=== PATIENT | male | born 1935 | race Caucasian/White ===

== ENCOUNTER → 2020-02-26 07:57 | Outpatient (BNVA) | payer MEDICARE, OTHER, SELFPAY | PROVIDERS: Family Provider Family Medicine; PCP Family Medicine; Visit Provider Specialist | DX: G30.9 Alzheimer's disease, unspecified (principal); F02.80 Dementia in other diseases classified elsewhere, unspecified severity, without behavioral disturbance, psychotic disturbance, mood disturbance, and anxiety | CPT/HCPCS: 99213 ==

== ENCOUNTER 2020-10-14 11:31 | Inpatient (IN) | payer MEDICARE, OTHER, SELFPAY ==
[2020-10-14] VITALS (11 sets, daily range): BP systolic 103–157; BP diastolic 70–102; PULSE 74–103; RESP 12–18; TEMP 36.4–37.7; O2SAT 93–100; BMI 22.9
--- NOTE | 2020-10-14 13:06 | W.ED.ABDPA2 ---
HPI - Abdominal Pain General: Chief Complaint: Abdominal Pain Stated Complaint: Hernia Complications Time Seen by Provider: 10/14/20 12:24 Source: patient and family Mode of arrival: wheelchair Limitations: no limitations History of Present Illness: HPI narrative: Mr. Vasquez is a pleasant 85-year-old male who comes in complaining of right inguinal pain. Patient has a known right inguinal hernia that is been present for quite some time. Patient's hernia came out last night and he is unable to reduce it. He presented to Dr. Perla's office today because of the pain he had been having he was referred here to the ER for evaluation. Is been no nausea or vomiting. His is uncertain when his last bowel movement was. Patient denies pain or complaint anywhere else other than his right hernia. Patient's states that hernias been present for quite some time but is always been reducible it is never called pain or problem until today. They have not tried anything at home for this to make it better or worse. Associated Symptoms: Denies chills, coffee ground emesis, constipation, GI cramping, diarrhea, dysuria, fever(s), heartburn, hematochezia, hematuria, hematemesis, melena, nausea, syncope and vomiting Review of Systems Const: Denies: fever(s), chills, body aches, fatigue, malaise or diaphoresis Eyes: Denies: change in vision, blurry vision, photophobia, eye discomfort, eye discharge, eye redness or yellow eyes ENMT: Denies: throat pain, odynophagia, hoarseness, swelling of lips/tongue, ear or mastoid pain, ear discharge, change in hearing or nasal discharge Card: Denies: chest pain, palpitations, irregular heart rhythm, edema, lightheadedness, syncope, pre-syncope, dyspnea on exertion or orthopnea Resp: Denies: dyspnea, productive cough, non-productive cough, wheezing, hemoptysis or chest congestion GI: Reports: abdominal pain (Right inguinal pain); Denies: nausea, vomiting, hematemesis, coffee ground emesis, heartburn, diarrhea, constipation, GI cramping, hematochezia or melena : Denies: flank pain, dysuria, urinary frequency, urinary urgency or hematuria Musc: Denies: neck pain, back pain, extremity pain, extremity swelling, joint pain, joint swelling, joint redness, joint warmth or joint stiffness Skin/Breast: Denies: rash, pruritus, erythema, skin pain or skin tenderness Neuro: Denies: headache(s), numbness in extremities, weakness in extremities, sensory changes, lack of coordination, difficulty walking, dizziness, vertigo, confusion, Slurred speech present or seizure-like activity Luis Enrique/Lymph: Denies: easy bruising, easy bleeding, petechiae, purpura or enlarged lymph nodes All/Imm: Denies: urticaria, throat swelling, tongue swelling, facial swelling or acute wheezing PFSH ED PFSH: Medical History (Updated 10/14/20 @ 14:05 by Frankie Newberry MD) Arthritis Cognitive decline Depression Hypertension Hypothyroidism Primary degenerative dementia of the Alzheimer type, senile onset Family History Other Dementia Social History Smoking and tobacco status: never smoked History of recent travel: No Physical Exam Const: COMMON NORMALS: no acute distress, patient oriented x3, no limitations and alert GENERAL APPEARANCE: cooperative HENMT: COMMON NORMALS: normocephalic, atraumatic, external ears normal, EAC's normal and Normal external nose present HEAD & SCALP: normal to inspection, normocephalic and atraumatic FACE & SINUS: normal facial exam and face symmetric NOSE: Normal external nose present and Normal nares present EXTERNAL EAR: Yes external ears normal EXTERNAL AUDITORY CANAL: EAC's normal MOUTH: Normal oral and palatal mucosa present, lip normal and tongue normal Eye: COMMON NORMALS: Equal, round and reactive pupils present and conjunctivae normal GENERAL EYE: appearance normal, both eyes and all related structures ALIGNMENT: Yes alignment normal PERIORBITAL: periorbital findings normal EYELID: eyelids normal CONJUNCTIVA: Yes conjunctivae normal SCLERA: sclerae normal PUPIL: Yes Equal, round and reactive pupils present Neck/C-Spine: COMMON NORMALS: full ROM, no lymphadenopathy, supple, no meningeal signs and no JVD GENERAL: Yes normal visual inspection and Yes trachea midline Chest: COMMONS NORMALS: normal inspection of the chest and normal palpation of entire chest wall Resp: COMMON NORMALS: normal respiratory effort, No retractions, No use of accessory muscles and clear to auscultation bilaterally EFFORT & INSPECTION: Yes able to speak in complete sentences and Yes symmetric chest movement AUSCULTATION: clear to auscultation bilaterally, no crackles, no rales, no rhonchi and no wheezes Cardio: COMMON NORMALS: no JVD, regular rate, regular rhythm, S1 normal heart sound present and S2 normal heart sound present RATE: regular rate RHYTHM: regular rhythm HEART SOUNDS: S1 normal heart sound present, S2 normal heart sound present, no click, no gallops, no murmurs and no rubs GI: COMMON NORMALS: Soft to palpation and No hepatosplenomegaly present PALPATION: Yes Soft to palpation, Yes Tenderness to palpation present (GI) (Tender to palpation over right inguinal hernia that is large and firm.), No Guarding due to palpation present (GI), No Rigid due to palpation, Yes No hepatosplenomegaly present, No Hernia present, No Palpable mass present and No Pulsatile mass present : COMMON NORMALS: Yes no CVA tenderness BLADDER/KIDNEY EXAM: Yes no CVA tenderness Back/Pelvis: COMMON NORMALS: no CVA tenderness, thoracic and lumbar spine normal to inspection, no thoracic nor lumbar tenderness and thoraco-lumbar ROM normal Extremity: COMMON NORMALS: normal to inspection, full ROM, capillary refill normal, no joint enlargement, no clubbing, cyanosis or edema and no calf tenderness Neuro: COMMON NORMALS: patient oriented x3, CN's II-XII intact bilaterally, moves all extremities, no focal motor deficits and no sensory deficits noted SENSORIUM/ORIENTATION: Yes alert MENINGEAL SIGNS: Yes no meningeal signs SPEECH: speech normal Psych: COMMON NORMALS: mental status grossly normal, Normal thought process present, cooperative, normal affect, speech normal and activity/motor behavior normal SPEECH: Yes normal speech THOUGHT PROCESS: Normal thought process present Skin: COMMON NORMALS: no rashes or lesions noted, turgor normal, no jaundice, no petechiae and no mottling GENERAL SKIN EXAM: no rashes or lesions noted and turgor normal Course Vital Signs: Vital signs: Vital Signs Temperature 99.8 F H 10/14/20 11:58 Pulse Rate 103 H 10/14/20 13:25 Respiratory Rate 15 10/14/20 13:25 Blood Pressure 142/80 10/14/20 11:58 Pulse Oximetry 97 10/14/20 13:25 MDM - Abdominal Pain MDM Narrative: Medical decision making narrative: 1347 -patient still has pain in very firm hernia. Case was reviewed with Dr. Newberry and he will come see the patient in the emergency department. Lab Data: Labs: Lab Results 10/14/20 10/14/20 10/14/20 Range/Units 13:13 13:13 13:13 WBC 18.2 H (4.0-10.0) 10^3/ uL RBC 4.95 (4.1-5.3) 10^6/u L Hgb 14.6 (11.7-16.6) g/dL Hct 44.1 (42.0-52.0) % MCV 89.1 (80-94) fL MCH 29.5 (28.0-34.0) pg MCHC 33.1 (30.0-36.0) g/dL RDW 14.1 (12.1-15.1) % Plt Count 162 (130-400) 10^3/c mm MPV 10.5 H (7.4-10.4) fL Neut % (Auto) 86.6 % Lymph % (Auto) 2.5 % Cole % (Auto) 10.0 % Eos % (Auto) 0.0 % Baso % (Auto) 0.3 % Neut # (Auto) 15.71 H (1.8-7.7) 10^3/u L Lymph # (Auto) 0.5 L (0.8-4.8) 10^3/u L Cole # (Auto) 1.8 H (0.2-0.9) 10^3/u L Eos # (Auto) 0.0 (0.0-0.8) 10^3/u L Baso # (Auto) 0.1 (0.0-0.1) 10^3/u L Nucleated RBC % (a uto) 0 % Nucleated RBCs # 0.0 /100WBC PT (12.1-14.9) SECO NDS INR (0.8-1.2) APTT (23.9-36.7) SECO NDS Sodium 135 L (136-145) mmol/L Potassium 4.3 (3.5-5.1) mmol/L Chloride 96 L (98-107) mmol/L Carbon Dioxide 25 (22-29) mmol/L Anion Gap 18.3 (5-19) BUN 22 (8-23) mg/dL Creatinine 1.0 (0.7-1.2) mg/dL GFR Calculation Not Reportable Glucose 164 H (65-115) mg/dL Calculated Osmolal ity 287 (285-295) mOsm/k g Lactic Acid 1.9 (0.5-2.2) mmol/L Calcium 9.5 (8.5-10.5) mg/dL Total Bilirubin 1.1 (0.15-1.2) mg/dL AST 22 (0-40) U/L ALT 20 (0-41) U/L Alkaline Phosphata se 75 (40-130) IU/L Total Protein 7.0 (6.6-8.7) g/dL Albumin 4.5 (3.5-5.2) g/dL Globulin 2.5 (1.3-4.6) g/dL 10/14/20 Range/Units 13:13 WBC (4.0-10.0) 10^3/ uL RBC (4.1-5.3) 10^6/u L Hgb (11.7-16.6) g/dL Hct (42.0-52.0) % MCV (80-94) fL MCH (28.0-34.0) pg MCHC (30.0-36.0) g/dL RDW (12.1-15.1) % Plt Count (130-400) 10^3/c mm MPV (7.4-10.4) fL Neut % (Auto) % Lymph % (Auto) % Cole % (Auto) % Eos % (Auto) % Baso % (Auto) % Neut # (Auto) (1.8-7.7) 10^3/u L Lymph # (Auto) (0.8-4.8) 10^3/u L Cole # (Auto) (0.2-0.9) 10^3/u L Eos # (Auto) (0.0-0.8) 10^3/u L Baso # (Auto) (0.0-0.1) 10^3/u L Nucleated RBC % (a uto) % Nucleated RBCs # /100WBC PT 13.60 (12.1-14.9) SECO NDS INR 1.01 (0.8-1.2) APTT 29.7 (23.9-36.7) SECO NDS Sodium (136-145) mmol/L Potassium (3.5-5.1) mmol/L Chloride (98-107) mmol/L Carbon Dioxide (22-29) mmol/L Anion Gap (5-19) BUN (8-23) mg/dL Creatinine (0.7-1.2) mg/dL GFR Calculation Glucose (65-115) mg/dL Calculated Osmolal ity (285-295) mOsm/k g Lactic Acid (0.5-2.2) mmol/L Calcium (8.5-10.5) mg/dL Total Bilirubin (0.15-1.2) mg/dL AST (0-40) U/L ALT (0-41) U/L Alkaline Phosphata se (40-130) IU/L Total Protein (6.6-8.7) g/dL Albumin (3.5-5.2) g/dL Globulin (1.3-4.6) g/dL Discharge Plan Discharge Patient Disposition: Placed in Observation Clinical Impression: Incarcerated inguinal hernia, unilateral Coding Level of Care Code ED Slip Cover Seamstress for Chg Fwd Exam Comprehensive
[2020-10-14 13:23] LABS: Basophils # 0.1 10^3/uL (0.0-0.1); Basophils % 0.3 %; Hematocrit 44.1 % (42.0-52.0); Hemoglobin 14.6 g/dL (11.7-16.6); Lymphocytes # 0.5 10^3/uL (0.8-4.8); Lymphocytes % 2.5 %; Mean Corpuscular HGB Conc 33.1 g/dL (30.0-36.0); Mean Corpuscular Hemoglobin 29.5 pg (28.0-34.0); Mean Corpuscular Volume 89.1 fL (80-94); Mean Platelet Volume 10.5 fL (7.4-10.4); Monocytes # 1.8 10^3/uL (0.2-0.9); Neutrophils # 15.71 10^3/uL (1.8-7.7); Neutrophils % 86.6 %; Nucleated Red Blood Cells % 0 %; Platelet Count 162 10^3/cmm (130-400); Red Blood Count 4.95 10^6/uL (4.1-5.3); Red Cell Distribution Width 14.1 % (12.1-15.1); White Blood Count 18.2 10^3/uL (4.0-10.0)
[2020-10-14] MEDS: sodium chloride 0.9% 1,000 ML 100 ML IV (13:23)
[2020-10-14] MEDS: ondansetron 2 mg/ML SDV 2 mL 4 MG IVP (13:24)
[2020-10-14] MEDS: morphine 4 mg/mL SDV 1 mL IVP (13:24)
[2020-10-14 13:33] LABS: INR 1.01 (0.8-1.2); Partial Thromboplastin Time 29.7 SECONDS (23.9-36.7)
[2020-10-14 13:41] LABS: Lactic Sepsis W/Reflex 1.9 mmol/L (0.5-2.2)
[2020-10-14 13:42] LABS: Alanine Aminotransferase 20 U/L (0-41); Albumin Level 4.5 g/dL (3.5-5.2); Alkaline Phosphatase 75 IU/L (40-130); Anion Gap 18.3 (5-19); Aspartate Amino Transferase 22 U/L (0-40); Blood Urea Nitrogen 22 mg/dL (8-23); Calcium 9.5 mg/dL (8.5-10.5); Carbon Dioxide 25 mmol/L (22-29); Chloride 96 mmol/L (98-107); Globulin 2.5 g/dL (1.3-4.6); Glucose 164 mg/dL (65-115); Osmolality Calculated 287 mOsm/kg (285-295); Potassium 4.3 mmol/L (3.5-5.1); Sodium 135 mmol/L (136-145); Total Bilirubin 1.1 mg/dL (0.15-1.2)
--- NOTE | 2020-10-14 14:00 | P.HP_ITS ---
Providers/Chief Complaint Admitting Physician: General Surgery Frankie Newberry MD Primary Care Provider: Edinson Emery DO Chief Complaint: Hernia Complications/Sent from History of Present Illness Angelo Fishman is a 85 year old male with an apparent known history of a right inguinal hernia for at least a year. It sounds like the hernia got larger and more painful for the patient yesterday. He has dementia and so a lot of this history was obtained from his . It sounds like he developed some nausea but no vomiting. He saw Dr. Emery and was sent to the emergency room subsequently for the incarcerated right inguinal hernia. Review of Systems General: Reports: ROS unobtainable due to medical condition (Patient has significant dementia) Medications/Allergies Home Medications Medication Instructions Recorded Confirmed Last Taken Type levothyroxine 75 mcg capsule 75 mcg PO DAILY@02/26/20 10/14/20 10/14/20 History losartan 50 mg-hydrochlorothiazide 1 tab PO DAILY@02/26/20 10/14/20 10/13/20 History 12.5 mg tablet memantine 10 mg tablet 10 mg PO BID@02/26/20 10/14/20 10/13/20 History Aricept 20 mg PO DAILY@10/14/20 10/14/20 10/13/20 History Allergies Allergy/AdvReac Type Severity Reaction Status Date / Time No Known Allergies Allergy Verified 10/14/20 12:07 PFSH Acute PFSH: Medical History (Updated 10/14/20 @ 14:05 by Frankie Newberry MD) Arthritis Cognitive decline Depression Hypertension Hypothyroidism Primary degenerative dementia of the Alzheimer type, senile onset Surgical History (Updated 10/14/20 @ 15:46 by Frankie Newberry MD) History of inguinal hernia repair done in [place] years ago according to the patient's Hx of cataract surgery Only on one side per the patient's Family History Other Dementia Social History Smoking and tobacco status: never smoked History of recent travel: No Vitals/I&O/Wt Last Vital Signs Temp 99.8 F H 10/14/20 11:58 Pulse 103 H 10/14/20 13:25 Resp 15 10/14/20 13:25 BP 142/80 10/14/20 11:58 Pulse Ox 97 10/14/20 13:25 Weight last 48 hrs Weight 160 lb Physical Exam Narrative: EXAM NARRATIVE: The patient was encountered in his room in the emergency department. He appears to be resting comfortably. The pupils are equal. No carotid bruits are heard. The lungs are clear anteriorly. The heart is regular but there is an occasional apparent skipped beat/prematurity. The abdomen is soft with mild scattered tenderness. He has an obvious incarcerated right inguinal hernia which extends down into the top of the right hemiscrotum. The area is very tender but there are no overlying skin changes otherwise. I cannot see a scar on either side from a possible previous repair. The extremities reveal no edema. Neurologically the patient appears to be grossly intact. Data : 10/14/20 13:13 10/14/20 13:13 A&P Assessment and plan (1) Incarcerated right inguinal hernia: The patient has an incarcerated and tender right inguinal hernia. I have discussed urgent reduction and repair with both the patient and his . Risks of surgery including bleeding, infection, hernia recurrence, anesthetic complications, etc. were all discussed. They seem to understand and agree to proceed with a repair today. Status: Acute Attestations Medical Necessity Statement*: The patient may be able to be discharged following surgery today. He will be left in outpatient status for now. 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
--- NOTE | 2020-10-14 15:25 | P.ANESASSM_ITS ---
Pre-Anesthetic Assessment Pre-Anesthetic Assessment: Height/Weight: Height 1.78 m Weight 72.575 kg Temp Pulse Resp BP Pulse Ox 97.6 F 103 H 18 157/102 98 10/14/20 15:01 10/14/20 15:01 10/14/20 15:01 10/14/20 15:01 10/14/20 15:01 Proposed Procedure: Operation Date: 10/14/20 16:00 Proposed Procedures p Inguinal Hernia Repair(Right) - Frankie Newberry MD Was Beta Ann taken within 24 hours: N/A Last intake: Intake Last Liquid Date 10/13/20 Last Liquid Time 12:00 Last Solid Date 10/13/20 Last Solid Time 12:00 Social: Social History: No alcohol and No tobacco Exam: Pre-Anes Outpt Exam: alert, clear to auscultation bilaterally and regular rate & rhythm Airway: Submandibular: WNL Cervical ROM: WNL MP: 2 Dentition: False and Partials Pulmonary: Pulmonary: None reported CV/HEM: CV/HEM: HTN : : None reported Hepatic: Hepatic: None reported GI: GI: GERD Comments: hernia Metabolic: Metabolic: None reported Musc/skel: Musc/skel: None reported Neuropsych: Neuropsych: Dementia Anesthetic Plan: ASA status: 3 Anesthesia: General Risk of > 500 ml blood loss (7ml/kg in children): No Meds/Allergies Current Medications: Current Medications Generic Name Dose Route Start Last Admin Trade Name Freq PRN Reason Stop Dose Admin Sodium Chloride 1,000 mls @ 100 m ls/hr 10/14/20 12:30 10/14/20 13:23 Sodium Chloride 0.9% IV 100 mls/hr .Q10H FORREST Administration PFSH Anesthesia PFSH: Medical History (Updated 10/14/20 @ 14:05 by Frankie Newberry MD) Arthritis Cognitive decline Depression Hypertension Hypothyroidism Primary degenerative dementia of the Alzheimer type, senile onset Family History Other Dementia Social History Smoking and tobacco status: never smoked History of recent travel: No Data Anesthesia CBC & Chem 7: 10/14/20 13:13 10/14/20 13:13 Other Labs: Laboratory Results - last 48 hr 10/14/20 10/14/20 10/14/20 13:13 13:13 13:13 WBC 18.2 H RBC 4.95 Hgb 14.6 Hct 44.1 MCV 89.1 MCH 29.5 MCHC 33.1 RDW 14.1 Plt Count 162 MPV 10.5 H Neut % (Auto) 86.6 Lymph % (Auto) 2.5 [place] % (Auto) 10.0 Eos % (Auto) 0.0 Baso % (Auto) 0.3 Neut # (Auto) 15.71 H Lymph # (Auto) 0.5 L [place] # (Auto) 1.8 H Eos # (Auto) 0.0 Baso # (Auto) 0.1 Nucleated RBC % (auto) 0 Nucleated RBCs # 0.0 PT INR APTT Sodium 135 L Potassium 4.3 Chloride 96 L Carbon Dioxide 25 Anion Gap 18.3 BUN 22 Creatinine 1.0 GFR Calculation Not Reportable Glucose 164 H Calculated Osmolality 287 Lactic Acid 1.9 Calcium 9.5 Total Bilirubin 1.1 AST 22 ALT 20 Alkaline Phosphatase 75 Total Protein 7.0 Albumin 4.5 Globulin 2.5 10/14/20 13:13 WBC RBC Hgb Hct MCV MCH MCHC RDW Plt Count MPV Neut % (Auto) Lymph % (Auto) [place] % (Auto) Eos % (Auto) Baso % (Auto) Neut # (Auto) Lymph # (Auto) [place] # (Auto) Eos # (Auto) Baso # (Auto) Nucleated RBC % (auto) Nucleated RBCs # PT 13.60 INR 1.01 APTT 29.7 Sodium Potassium Chloride Carbon Dioxide Anion Gap BUN Creatinine GFR Calculation Glucose Calculated Osmolality Lactic Acid Calcium Total Bilirubin AST ALT Alkaline Phosphatase Total Protein Albumin Globulin Cardiac Studies: No Data to Display
--- NOTE | 2020-10-14 20:05 | SUR.OPER ---
sandra noticed blood in urine (catheter bag). Dr. smiley notified via cell phone
--- NOTE | 2020-10-14 21:03 | PM.OP ---
Operative Report Date of procedure: October 14, 2020 Pre-op Diagnosis: Intraoperative hematuria Post-op diagnosis: same Post-op Diagnosis: No evidence of bladder or ureteral injury Procedure Done: 1. Cystoscopy Pathology: none sent Surgeon: See Business Transformation Manager: Coni Anesthesia: General Estimated blood loss: None during the urologic procedure Urine output: Not measured Complications: None Findings: 1. No obvious extravasation of fluid into the abdominal cavity with filling of the bladder with indigo carmine stained normal saline via Jeffrey catheter. 2. Friable prostate. 3. Heavily trabeculated bladder 4. Bilateral normal ureteral efflux 5. No evidence of genitally urinary injury Condition: stable Brief History: The patient is an 85-year-old white male with an incarcerated inguinal hernia who was found to have ischemic bowel in the hernia at time of hernia repair by Dr. Newberry. He performed a partial colectomy and had close the wound but it was noted that there was some hematuria in the Jeffrey catheter. Concern obviously was potential for bladder or ureteral injury and I was consulted for evaluation. _ Procedure: The patient was asleep on the table with an open abdominal wound upon my entry into the operating suite. The wound was inspected and there was no obvious gross injury to the bladder. Utilizing the Jeffrey catheter placed preoperatively about 180 cc of indigo carmine stained normal saline was instilled into the bladder. The bladder was confirmed to be full. There was no evidence of leakage with careful inspection of the visible bladder and also of the fluid drained from the peritoneal cavity. There appeared to be no through and through trauma of the bladder wall therefore. A flexible cystoscope was then utilized. His Jeffrey catheter was removed and he was reprepped underneath the drapes for the abdominal surgery. A well-lubricated flexible cystoscope was advanced into the bladder under direct vision. There was a little bit of blood in the bladder and this was irrigated out. The bladder wall was carefully inspected and there was no evidence of any perforation or injury. The bladder held the fluid used to fill the bladder. Prior to the cystoscopy indigo carmine was administered intravenously with small amount of Lasix administered as well. Both ureteral orifices were carefully inspected and they effluxed normally with indigo stained urine. After confirmation of no evidence of ureteral or bladder injury the procedure was completed and the bladder was drained with an 18 [place] Jeffrey catheter placed to dependent drainage. He tolerated the procedure well without complications and was turned back over to Dr. Newberry for completion of his portion. _
--- NOTE | 2020-10-14 21:09 | PM.OP ---
Operative Report Date of procedure: October 14, 2020 Pre-op Diagnosis: Incarcerated right inguinal hernia. Post-op Diagnosis: Incarcerated right indirect inguinal hernia with cecal necrosis. Procedure Done: 1. Exploratory laparotomy with cecectomy. 2. Reduction and repair of incarcerated right inguinal hernia. 3. Flexible cystoscopy by Dr. Cui. Specimens removed/disposition: 1. Terminal ileum/cecum. 2. Right inguinal hernia sac. Surgeon: Frankie Newberry Surgeon: Jose Cui Anesthesia: General Estimated blood loss (mL): 75 Complications: None. Condition: stable Disposition: ICU Procedure: The patient was brought to the operating room and was placed in a supine position on the operating room table. General endotracheal anesthesia was induced. The lower abdomen and genitalia were prepped and draped in a sterile fashion. A transverse incision was carried out on the right side above the level of the pubic tubercle. Cautery was used to divide the subcutaneous tissue down to the external oblique aponeurosis. The the patient's right inguinal hernia was still very firm and was unable to be reduced despite the induction of anesthesia. The external inguinal ring was opened by dividing the fibers of the external oblique along the surface of the inguinal canal. It was quickly discovered that the patient had a flimsy, dusky german, somewhat malodorous hernia sac coming through the internal inguinal ring with the cord structures. The sac was freed from the surrounding cord structures and in the process the contents of the hernia were reduced. The hernia sac was freed up to the internal ring and was then opened revealing a somewhat dusky and hemorrhagic appearing cecum just within the peritoneal cavity. I did not feel like I could get a very good look at the cecum through the small hernia defect and so the decision was made to perform a mini laparotomy in the lower midline. A lower midline incision was carried out with a scalpel and the subcutaneous tissue was opened using cautery. The midline fascia was opened and the peritoneal cavity was entered. It was found that the cecum was very dusky and it could be seen that the dependent portion of the cecum had obviously been incarcerated in the hernia as it was somewhat necrotic but no evidence of gross perforation was present. It was clear that the cecum was going to need to be removed. The incisions were covered and the drapes were removed. The abdomen was reprepped and draped more completely superiorly and a Jeffrey catheter was inserted. Anesthesia eventually placed a nasogastric tube, as well. The incision was carried out up and slightly around the umbilicus in the midline. The cecum was then mobilized by incising the peritoneal reflections along the right gutter all the way up and slightly around the hepatic flexure. The colon once again became healthy at the proximal ascending region. The ileum itself appeared to be healthy with the exception of some edema very distally. The terminal ileum was divided using a ANA LILIA 55 stapler. The mid ascending colon was divided using the same. The intervening mesentery was divided using the Voyant energy device. Sizable vessels were also ligated with ties of 0 Vicryl. The specimen was excised. The peritoneal cavity was then extensively irrigated with saline. Eventually the nasogastric tube could be felt within the stomach and was adjusted by anesthesia. The terminal ileum was then brought together with the ascending colon with some stay sutures of 3-0 Vicryl in preparation for anastomosis. An opening was made near the end of either limb of bowel with cautery and then an arm of a ANA LILIA 55 stapler was passed down either limb and was fired, creating a common opening between the 2 limbs of bowel in a standard functional end-to-end anastomotic fashion. The staple lines were transposed and the common opening on the end was closed with another ANA LILIA 55 stapler. The anastomosis was palpably patent and all the bowel remained viable throughout the remainder of the procedure. Some additional stay sutures of 3-0 Vicryl were placed at the proximal end of the staple line to take tension off of the anastomosis. The mesenteric window was also closed using running suture of 3-0 Vicryl. The bowel was returned to the abdomen and extensive irrigation was once again carried out. A final look around the abdomen revealed no other obvious issues. The midline fascia was closed using a running looped suture of PDS suture. Attention was once again directed to the transverse right inguinal incision. The hernia sac was ligated near its neck at the internal ring with a stick tie of 3-0 Vicryl and the excess sac was excised. The wound was irrigated with saline. The hernia was then repaired using multiple sutures of 0 Prolene that were used to connect the conjoined area medially to the reflecting edge of Poupart's ligament laterally both superior and inferior to the internal inguinal ring in a typical Bassini fashion. I have avoided any use of mesh given the incarceration with the necrotic hernia sac that had been present. Extensive irrigation was once again carried out and the external oblique aponeurosis was brought over the remaining cord structures using a running suture of 3-0 Vicryl. The subcutaneous tissue was approximated with a simple suture of 3-0 Vicryl. At this point anesthesia reported a small tinge of blood in the Jeffrey catheter bag. Dr. Cui from urology was contacted and while he was coming into the hospital I opened up the lower fascial incision in the midline since the small laparotomy incision had been made before the patient's Jeffrey catheter was inserted. The peritoneal and preperitoneal spaces were examined and no obvious injury was seen on the bladder. Dr. Cui arrived and helped inspect the bladder through the lower portion of the midline incision after the bladder had been filled with saline containing methylene blue, and no obvious injury was seen either in the preperitoneal space or coming from the peritoneal cavity. Dr. Cui then performed flexible sigmoidoscopy after the patient had been administered some indigo carmine intravenously, and no obvious bladder or ureteral injury was identified. See Dr. Cui's separate dictation for details of his portion of the procedure. The lower aspect of the midline incision was once again closed at the fascial level with a running suture of #1 PDS. This was tied to the looped PDS suture that was coming down from above that had been partially loosened up to reinspect the lower abdomen and preperitoneal space. The subcutaneous tissue was once again irrigated and then the skin in the midline was closed using skin felicity. A final round of irrigation was also carried out in the right inguinal incision before the skin was approximated using skin felicity. Sterile dressings were placed over the incisions and the patient was eventually taken directly to the intensive care unit postoperatively in stable condition postoperatively.
--- NOTE | 2020-10-14 21:11 | PM.CONSULT ---
Providers/Reason For Consult Consulting Physican/Specialty*: Urology/See Reason for Consult*: Intraoperative hematuria Attending Physician: Frankie Newberry MD Primary Care Provider: Edinson Emery DO History of Present Illness History of Present Illness Angelo Fishman is a 85 year old male who was found to have an incarcerated right inguinal hernia and ultimately ischemic bowel was discovered. Partial colectomy was performed and at the completion of the procedure hematuria was noted in the urine. I was consulted for evaluation. Review of Systems General: Reports: Other (Under anesthesia) Meds/Allergies Home Medications and Allergies Home Medications Medication Instructions Recorded Confirmed Last Taken Type levothyroxine 75 mcg capsule 75 mcg PO DAILY@02/26/20 10/14/20 10/14/20 History losartan 50 mg-hydrochlorothiazide 1 tab PO DAILY@02/26/20 10/14/20 10/13/20 History 12.5 mg tablet memantine 10 mg tablet 10 mg PO BID@,02/26/20 10/14/20 10/13/20 History Aricept 20 mg PO DAILY@10/14/20 10/14/20 10/13/20 History Allergies Allergy/AdvReac Type Severity Reaction Status Date / Time No Known Allergies Allergy Verified 10/14/20 12:07 Current Medications Current Medications Generic Name Dose Route Start Last Admin Trade Name Freq PRN Reason Stop Dose Admin Sodium Chloride 1,000 mls @ 100 mls/hr 10/14/20 12:30 10/14/20 13:23 Sodium Chloride 0.9% IV 100 mls/hr .Q10H FORREST Administration PFSH Acute PFSH: Medical History (Updated 10/14/20 @ 21:13 by Jose Cui MD) Arthritis Cognitive decline Depression Hypertension Hypothyroidism Primary degenerative dementia of the Alzheimer type, senile onset Surgical History (Updated 10/14/20 @ 15:46 by Frankie Newberry MD) History of inguinal hernia repair done in [place] years ago according to the patient's Hx of cataract surgery Only on one side per the patient's Family History Other Dementia Social History Smoking and tobacco status: never smoked History of recent travel: No Vitals/I&O/Wt Last Vital Signs Temp 97.6 F 10/14/20 15:01 Pulse 103 H 10/14/20 15:01 Resp 18 10/14/20 15:01 BP 157/102 10/14/20 15:01 Pulse Ox 98 10/14/20 15:01 10/14/20 10/14/20 10/14/20 06:59 14:59 22:59 Intake Total 50 / 50 Balance 50 / 50 Weight last 48 hrs Weight 160 lb Physical Exam Narrative: EXAM NARRATIVE: Intraoperative and anesthetized. : PENIS: normal penis and no swelling MEATUS: meatus normal Urinary Catheter Management^: Jeffrey Latex: Cath Placed During This Visit: yes Urinary Catheter Date of Insertion: 10/14/20 Urinary Catheter Time of Insertion: 19:10 A&P Assessment and plan (1) Gross hematuria: 1. Bladder was filled with indigo carmine stained normal saline with no evidence of extravasation into the peritoneal cavity with direct visualization. 2. Flexible cystoscopy was performed with a demonstrated no evidence of intravesicle pathology except for friable prostate. Ureters were confirmed to be effluxing urine stained with indigo carmine given intravenously. 3. No gross pathology identified of any concern related to the urinary tract. 4. No further work-up necessary. Would maintain the catheter as per normal protocol. 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
--- NOTE | 2020-10-14 21:38 | P.PCN_ITS ---
PACU note PACU note: VSS, good respiratory effort, report to PURCHASING MANAGER/SALES Post-Anesthesia Exam: somnolent, arousable Disposition: admitted
--- NOTE | 2020-10-14 21:38 | PM.PACU ---
PACU note PACU note: VSS, good respiratory effort, report to DIESEL BUS MECHANIC Post-Anesthesia Exam: somnolent, arousable Disposition: admitted
--- NOTE | 2020-10-14 21:39 | ANE.PACU2 ---
Inpatient post-anesthesia follow up: Airway intact: Yes Vital signs: Temperature 98.3 F Pulse Rate [Right Radial] 96 Pulse Rate 83 Respiratory Rate 17 Blood Pressure [Le ft Arm] 142/80 Blood Pressure 137/86 Pulse Oximetry 100 Oxygen Delivery Me thod Simple Mask Oxygen Flow Rate 6 Fraction of Inspir ed Oxygen Hydration adequate: Yes Nausea and vomiting: No Pain level: 3 Mental status: Baseline
[2020-10-14] MEDS: piperacillin-tazobactam 3.375 GM in sodium chloride 0.9% (plus) 50 ML IV (22:35)
[2020-10-14] MEDS: D5-NS 0.45% + KCL 20 mEq 20 MEQ/1,000 ML BAG 100 MEQ IV (22:35)
[2020-10-14] MEDS: famotidine 20 mg/2 mL INJ IVP (22:36)
[2020-10-14] MEDS: OLANZapine 10 mg VIAL IM (23:16)
[2020-10-14 23:56] LABS: Blood Urea Nitrogen 19 mg/dL (8-23); Calcium 8.1 mg/dL (8.5-10.5); Carbon Dioxide 23 mmol/L (22-29); Chloride 102 mmol/L (98-107); Glucose 150 mg/dL (65-115); Osmolality Calculated 287 mOsm/kg (285-295); Sodium 136 mmol/L (136-145)
[2020-10-15] VITALS (41 sets, daily range): BP systolic 69–141; BP diastolic 45–107; PULSE 67–136; RESP 14–43; TEMP 37–37.6; O2SAT 80–98
[2020-10-15 00:04] LABS: Anion Gap 15.3 (5-19); Potassium 4.3 mmol/L (3.5-5.1)
--- NOTE | 2020-10-15 00:39 | PM.CONSULT ---
Providers/Reason For Consult Consulting Physican/Specialty*: Hospitalist service Reason for Consult*: Postoperative acute delirium and multiple comorbid condition management Attending Physician: Frankie Newberry MD Primary Care Provider: Edinson Emery DO History of Present Illness History of Present Illness Angelo Fishman is a 85 year old male who has history of underlying dementia, long history of right inguinal hernia presented today after episodes of emesis, his PCP recommended him to go to the ER for further evaluation, got diagnosed with incarcerated inguinal hernia, Dr. Newberry performed the surgery, during surgery he was found to have necrotic cecum , status post removal of cecum with end-to-end anastomosis, hospitalist service has been requested for assistance and ICU management after the procedure. Of note during procedure he had hematuria, Dr. Cui did flexible cystoscopy, no extravasation of dye was noticed in peritoneum, no friable mucosa or prostate acute pathology was noticed. At the time my evaluation patient seems very agitated, he did not respond to Zyprexa 10 mm IM hence decision was made to start him on Precedex, I did not recommend BiPAP because of recent surgery, I requested nurses to update me regarding vitals to see if we need to switch his medications and just stick with antipsychotics. At the bedside Zosyn is running. Patient is awake, alert but confused and is not able to give answers to my simple questions. told the nursing staff that he does get sundowning which can get really bad. His Jeffrey catheter has greenish blue-tinged dye, I do not see active hematuria. He is hemodynamically stable. Review of Systems General: Reports: ROS unobtainable due to medical condition (Postoperative delirium with underlying dementia) Const: Reports: fever(s) Meds/Allergies Home Medications and Allergies Home Medications Medication Instructions Recorded Confirmed Last Taken Type levothyroxine 75 mcg capsule 75 mcg PO DAILY@02/26/20 10/14/20 10/14/20 History losartan 50 mg-hydrochlorothiazide 1 tab PO DAILY@02/26/20 10/14/20 10/13/20 History 12.5 mg tablet memantine 10 mg tablet 10 mg PO BID@02/26/20 10/14/20 10/13/20 History Aricept 20 mg PO DAILY@10/14/20 10/14/20 10/13/20 History Allergies Allergy/AdvReac Type Severity Reaction Status Date / Time No Known Allergies Allergy Verified 10/14/20 12:07 Current Medications Current Medications Generic Name Dose Route Start Last Admin Trade Name Mikeq PRN Reason Stop Dose Admin Famotidine 20 mg 10/14/20 22:06 10/14/20 22:36 Famotidine 20 Mg/2 Ml Inj IVP 20 mg Q12H FORREST Administration Piperacillin Sod/Tazobactam 50 mls @ 12.5 mls/hr 10/14/20 22:06 10/14/20 22:35 Sod 3.375 gm/ Sodium Chloride IV 12.5 mls/hr Q8H FORREST Administration Protocol Potassium Chloride/Dextrose/Sod Cl 20 meq in 1,000 mls @ 100 mls/hr 10/14/20 22:06 10/14/20 22:35 D5-Ns 0.45% + Kcl 20 Meq IV 100 mls/hr .Q10H FORREST Administration PFSH Acute PFSH: Medical History Arthritis Cognitive decline Depression Hypertension Hypothyroidism Primary degenerative dementia of the Alzheimer type, senile onset Surgical History History of inguinal hernia repair done in [place] years ago according to the patient's Hx of cataract surgery Only on one side per the patient's Family History Other Dementia Social History Smoking and tobacco status: never smoked History of recent travel: No Vitals/I&O/Wt Last Vital Signs Temp 98.5 F 10/14/20 21:45 Pulse 82 10/14/20 21:45 Resp 17 10/14/20 21:45 BP 125/76 10/14/20 21:45 Pulse Ox 94 10/14/20 21:45 10/14/20 10/14/20 10/15/20 14:59 22:59 06:59 Intake Total 1300 / 1300 Output Total 275 / 275 Balance 1025 / 1025 Weight last 48 hrs Weight 72.575 kg Physical Exam Narrative: EXAM NARRATIVE: Elderly male currently very agitated Normal hemodynamically Looks very dry with dry buccal mucous membranes He is awake, alert but only oriented to himself and confused not able to answer my simple questions no signs of stroke S1, S2 sinus tachycardia with signs of dehydration I have not change his abdominal dressing which is fairly clean without any serosanguineous discharge Lower extremity has SCDs Urine bag has greenish-blue dye which was used during cystoscopy Not able to do complete neuro exam but grossly he is moving all of his extremities EOMI, pupils are symmetrical bilaterally Urinary Catheter Management^: Jeffrey Latex: Cath Placed During This Visit: yes Urinary Catheter Date of Insertion: 10/14/20 Urinary Catheter Time of Insertion: 19:10 A&P Assessment and plan (1) Incarcerated right inguinal hernia: Status: Acute (2) Sepsis: Status: Acute (3) Gross hematuria: Status: Acute (4) Alzheimer disease: Status: Acute Additional A&P Information Sepsis Criteria met with tachycardia, leukocytosis, most likely source necrotic cecum, currently on Zosyn postop day 0, would request blood cultures Continue fluid resuscitation along antibiotics currently hemodynamically stable Incarcerated right inguinal hernia status post removal of necrotic cecum with end-to-end anastomosis Postop day 0 Closely monitor for any postoperative complications, sepsis was present at the time of admission, He has a nasogastric tube not hooked up to suction, he will stay n.p.o., we will keep him on D5 half-normal saline maintenance fluid rate Morphine for analgesia, repeat lactic acid in the morning Gross hematuria status post flexible cystoscopy Dr. Cui did flexible cystoscopy which did not reveal any acute pathology nor leakage of dye intraperitoneal, no active hematuria, hold off on heparin for at least 48 hours until cleared by urology and surgery Acute delirium with underlying dementia Currently on Precedex as he was trying to remove his IV sites and abdominal wound dressing, the peroxide did not help with his symptoms, closely monitor his heart rate and blood pressure, will add antipsychotics overnight if needed most likely this is postoperative acute delirium which will get better in few hours, to prevent recurrent episodes he might benefit from Haldol scheduled doses, blood glucose 150 N.p.o. DVT prophylaxis SCDs Full code Consult Attestations Medical Necessity Statement: As per general surgery Time Spent in Patient Care: 35 minutes Coding Level of Care Code Acute Habitat Management Coordinator for [facility] Fwd Diagnoses Incarcerated right inguinal hernia K40.30 Sepsis A41.9 Gross hematuria R31.0 Alzheimer disease G30.9; F02.80
[2020-10-15] MEDS: dexmedetomidine 400 MCG in sodium chloride 0.9% (100 ml) 100 ML IV ×2 (00:54→18:16)
[2020-10-15 05:59] LABS: Hematocrit 40.8 % (42.0-52.0); Hemoglobin 12.9 g/dL (11.7-16.6); Mean Corpuscular HGB Conc 31.6 g/dL (30.0-36.0); Mean Corpuscular Hemoglobin 29.5 pg (28.0-34.0); Mean Corpuscular Volume 93.4 fL (80-94); Mean Platelet Volume 10.5 fL (7.4-10.4); Platelet Count 128 10^3/cmm (130-400); Red Blood Count 4.37 10^6/uL (4.1-5.3); Red Cell Distribution Width 14.4 % (12.1-15.1); White Blood Count 10.8 10^3/uL (4.0-10.0)
[2020-10-15 06:24] LABS: Anion Gap 13.3 (5-19); Blood Urea Nitrogen 19 mg/dL (8-23); Carbon Dioxide 22 mmol/L (22-29); Chloride 104 mmol/L (98-107); Glucose 132 mg/dL (65-115); Osmolality Calculated 284 mOsm/kg (285-295); Potassium 4.3 mmol/L (3.5-5.1); Sodium 135 mmol/L (136-145)
[2020-10-15 06:25] LABS: Lactate (Lactic Acid level) 2.4 mmol/L (0.5-2.2)
[2020-10-15] MEDS: piperacillin-tazobactam 3.375 GM in sodium chloride 0.9% (plus) 50 ML IV ×3 (06:32→21:42)
[2020-10-15 06:42] LABS: Bilirubin Urine Neg (Negative); Blood Urine 3+ (Negative); Glucose Urine UA Norm (Normal); Ketones Urine Negative (Negative); Leukocyte Esterase Urine Trace (Negative); Nitrate Urine Negative (Negative); Protein Urine Trace (Negative); Specific Gravity, Urine 1.015 (1.005-1.030); Urine Appearance Hazy (CLEAR); Urine Color Yellow (Yellow); Urobilinogen Urine Norm (Negative); pH Urine 5 (5-7)
[2020-10-15 06:43] LABS: RBC Urine >100 /hpf (0-2)
[2020-10-15 06:44] LABS: Bacteria Urine TRACE /hpf; Mucus Urine TRACE /hpf; Squamous Epithelial Cell Urine 0-4 /hpf (0-5); WBC Urine 25-40 /hpf (0-5)
[2020-10-15 06:45] LABS: Add Urine Culture? Yes
[2020-10-15 07:52] LABS: Slide Review Slide Review Perform
[2020-10-15 07:54] LABS: Absolute Segmented Neutrophil 3.9 10/cmm (1.6-7.1); Lymphocytes 4 %; Monocytes Absolute 0.4 10^3/cmm (0.1-0.6); Segmented Neutrophils 36 %; Total Cells Counted 100 (0-100)
[2020-10-15 07:55] LABS: Absolute Neutrophil 9.9 10^3/cmm (1.4-6.5); Eosinophils 0 %; Giant Platelets Trace; Platelet Estimate Decreased (Normal)
--- NOTE | 2020-10-15 08:30 | PC.NURSE ---
Pt became hypotensive. Precedex was infusing at 0.3mcg/kg/hr. Stopped gtt. Blood pressure increased a bit. SBP 88, Map of 58. Dr Gandhi notified of hypotension. Orders for 500ml bolus received and started. Pt responsive to fluids.
[2020-10-15] MEDS: levalbuterol 0.63 mg/3 mL Neb INHALATION ×4 (08:31→21:51)
--- NOTE | 2020-10-15 08:36 | P.PN_ITS ---
Subjective Subjective: Interval history: Angelo is sedated with Precedex when I saw him. History and physical reviewed as well as consultation. Medications: Reviewed: Yes Vitals/I&O/Wt Last Vital Signs Temp 98.5 F 10/14/20 21:45 Pulse 81 10/15/20 06:00 Resp 16 10/14/20 22:00 BP 125/76 10/14/20 21:45 Pulse Ox 93 10/14/20 22:00 10/14/20 10/15/20 10/15/20 22:59 06:59 14:59 Intake Total 1300 / 1300 50.507 / 1350.507 29.514 / 29.514 Output Total 275 / 275 1000 / 1275 Balance 1025 / 1025 -949.493 / 75.507 29.514 / 29.514 Weight last 48 hrs Weight 72.575 kg Physical Exam Narrative: EXAM NARRATIVE: General exam sedated Neck is supple no lymphadenopathy Cardiovascular regular rate and rhythm Lungs clear Abdomen is soft. Hypoactive bowel sounds Extremities no cyanosis clubbing or edema Urinary Catheter Management^: Jeffrey Latex: Cath Placed During This Visit: yes Reason for Continuing Indwelling Catheter: Accurate Measurement of Urinary Output in Critically Ill Patients Urinary Catheter Date of Insertion: 10/14/20 Urinary Catheter Time of Insertion: 19:10 Data : 10/15/20 05:41 10/15/20 05:41 A&P Assessment and plan (1) Incarcerated right inguinal hernia: Postoperative day #1, status post hernia repair as well as end anastomosis secondary to necrotic cecum found on exploration. Status: Acute (2) Sepsis: Continue Zosyn Obtain blood cultures. It does not appear they were done Patient Status: Acute (3) Gross hematuria: Urology consultation appreciated Continue Jeffrey currently Flexible sigmoidoscopy did not reveal any significant pathology. Secondary to significant hematuria holding on anticoagulation. Status: Acute (4) Alzheimer disease: Significant acute delirium/acute encephalopathy. Currently on Precedex. We will try to discontinue and use as needed medication as needed. Discussed wi th ICU nurse to call me should patient require medication for delirium. We will try Zyprexa IM Status: Acute Additional A&P Information Gross hematuria status post flexible cystoscopy Dr. Cui did flexible cystoscopy which did not reveal any acute pathology nor leakage of dye intraperitoneal, no active hematuria, hold off on heparin for at least 48 hours until cleared by urology and surgery SCDs for DVT prophylaxis Full code Attestations Medical Necessity Statement*: Needs continued ICU stay for sepsis, acute delirium postoperative Critical Care Time: 31 minutes spent at bedside reviewing hospital course, examining patient, reviewing laboratory and determining course as well as visiting with specialists. Patient with sepsis, status post surgery for necrotic cecum and hernia with acute delirium superimposed on chronic dementia. He is at high risk for decompensation and/or . 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
--- NOTE | 2020-10-15 08:44 | PC.CHAP ---
Pastoral Care Encounter/Spiritual Assessment Type of Contact [] Declined executive consultant visit [] Patient/Family/Request visit [] Outpatient visit [] Follow-up visit [] Physician referral [] Code/Alert [] Routine visit [] Staff referral [] Actively dying [] Patient sleeping [] Family support [] [] Out of room [] Palliative care [] [] Receiving care in room [] Pre-surgical visit [] Trauma [] Long length of stay [x] ICU visit [] Other: Relational/Emotional Strength [] Patient feels connected with others/family/visitors/staff [] Distress [] Loneliness/isolation [] Abandonment Spirituality of Patient [] Person of Ifrah [] Attends Synagogue of their [place]rah [] Believes in Prayer [] Reads Bible or Judaism materials [] There are Spiritual issues to be addressed Studio Data Analyst Interventions [x] Prayer [] Active listening [] Non-anxious presence [] Spiritual/emotional support [] Crisis/trauma care [] Spiritual counseling [] Bereavement support [] Provided bereavement packet [] Provided Bible/devotional materials [] Provided toy/stuffed animal, coloring book to patient or family member [] Provided Communion [] Anointing/[address] [] Salvation [x] Completed spiritual assessment [] Other: Impact on Illness or Injury [] Angry [] Fearful [] Anxious [] Often cries [] Exhaustion [] Unable to work [] Unable to attend yarsanism [] Unable to walk/stand [] Unable to read [] Unable to drive [] Unable to eat/drink [] Unable to sleep [] Unable to be with family [] Patient intubated [] Other: Summary Time spent with patient
[2020-10-15] MEDS: famotidine 20 mg/2 mL INJ IVP ×2 (10:13→21:42)
[2020-10-15] MEDS: D5-NS 0.45% + KCL 20 mEq 20 MEQ/1,000 ML BAG 100 MEQ IV ×2 (10:13→21:42)
[2020-10-15] MEDS: sodium chloride 0.9% 500 ML IV (10:26)
[2020-10-15] MEDS: morphine 4 mg/mL SDV 1 mL IVP ×2 (11:55→15:49)
--- NOTE | 2020-10-15 12:10 | PM.PN ---
Subjective Subjective: Interval history: The patient is in the ICU following surgery last night. The patient was found to have a necrotic cecum incarcerated in his right inguinal hernia and underwent a cecectomy in addition to repair of his hernia. Nursing reports that the patient is somewhat confused but his says this is fairly baseline for him. He is somewhat agitated and continues to try to pull his NG and Jeffrey catheter out. Nursing has used some restraints at times to prevent the patient from harming himself. Vitals/I&O/Wt Last Vital Signs Temp 98.5 F 10/14/20 21:45 Pulse 90 10/15/20 11:06 Resp 20 H 10/15/20 11:55 BP 125/76 10/14/20 21:45 Pulse Ox 96 10/15/20 11:55 10/14/20 10/15/20 10/15/20 22:59 06:59 14:59 Intake Total 1300 / 1372.674 50.507 / 8663.803 6888.514 / 1079.514 Output Total 275 / 1275 1000 / 1275 Balance 1025 / 97.674 -949.493 / 97.674 1079.514 / 1079.514 Weight last 48 hrs Weight 160 lb Physical Exam Narrative: EXAM NARRATIVE: Vital signs appear fairly stable. The abdomen reveals hypoactive bowel sounds. The patient has messed with his incision enough that a couple felicity have been loosened around the umbilical region. The incision otherwise looks good. Urinary Catheter Management^: Jeffrey Latex: Cath Placed During This Visit: yes Reason for Continuing Indwelling Catheter: Accurate Measurement of Urinary Output in Critically Ill Patients Urinary Catheter Date of Insertion: 10/14/20 Urinary Catheter Time of Insertion: 19:10 Data : 10/15/20 05:41 10/15/20 05:41 A&P Assessment and plan (1) Incarcerated right inguinal hernia: Status post repair on 09/24/2020. Unfortunately the patient's cecum was incarcerated in the hernia and was necrotic. The patient underwent resection. The hospitalist service has been consulted for medical management postoperatively. Status: Acute Attestations Medical Necessity Statement*: Originally, I was hoping to get the patient's hernia reduced and repaired so that he could go home. He was initially treated as an outpatient but given the fact that he had to have a cecectomy last night due to a cecal necrosis, he has been made an inpatient for further management postoperatively. Coding Level of Care Code Acute Binding End Stitcher for [facility] Fwd Diagnoses Incarcerated right inguinal hernia K40.30
--- NOTE | 2020-10-15 14:00 | PC.NURSE ---
Pt very fidgety. He is pulling at the bed linens, throwing his legs off bed, trying to get the hooker . He occasionally reaches for the NG. His is at bedside redirecting him..
[2020-10-15] MEDS: OLANZapine 10 mg VIAL 5 MG IM (16:18)
--- NOTE | 2020-10-15 16:45 | PC.NURSE ---
Dr Gandhi notified that pt was extremely busy, limber and strong. For his safety he will probably need a sitter. Orders received for one-on-one siter and Zyprexa IM. See MAR. Pt responded to Zyprexa.
--- NOTE | 2020-10-15 19:00 | PC.NURSE ---
Shift summary: Pt confused. He has spent most of the day pulling at bed linens, throwing his legs out of the bed, attempting to pull catheter, dressings or NG. He was re-directable but only briefly. He had a brief period of hypotension this am, which responded well to additional IV fluids. Bowel sounds active on the right and hypoactive on the left. Dressing has been changed once then reinforced. Urine output 475, dark yellow urine, works out to be 39ml/hr. restraints were needed for his safety. He has d5/0.45NS with KCL and Precedex 0.1mcg/kg/hr infusing . He received morphine twice this shift for pain. He also received Pepcid Iv and Zyprexa IM. At shift change he was resting calmly with his eyes closed.
[2020-10-16] VITALS (64 sets, daily range): BP systolic 75–144; BP diastolic 46–114; PULSE 54–157; RESP 9–30; TEMP 36.2–37.7; O2SAT 59–96
--- NOTE | 2020-10-16 02:14 | PC.NURSE ---
Notified Dr. Newberry of patient removing NGT. Orders to not replace NGT at this time.
[2020-10-16] MEDS: dexmedetomidine 400 MCG in sodium chloride 0.9% (100 ml) 100 ML IV (03:24)
[2020-10-16] MEDS: piperacillin-tazobactam 3.375 GM in sodium chloride 0.9% (plus) 50 ML IV ×3 (05:29→22:57)
[2020-10-16] MEDS: D5-NS 0.45% + KCL 20 mEq 20 MEQ/1,000 ML BAG 100 MEQ IV ×2 (05:29→16:16)
[2020-10-16 05:30] LABS: Basophils % 0.1 %; Eosinophils % 0.1 %; Hematocrit 35.6 % (42.0-52.0); Hemoglobin 11.2 g/dL (11.7-16.6); Lymphocytes # 0.7 10^3/uL (0.8-4.8); Lymphocytes % 7.8 %; Mean Corpuscular HGB Conc 31.5 g/dL (30.0-36.0); Mean Corpuscular Hemoglobin 29.6 pg (28.0-34.0); Mean Corpuscular Volume 94.2 fL (80-94); Mean Platelet Volume 11.1 fL (7.4-10.4); Monocytes # 0.7 10^3/uL (0.2-0.9); Monocytes % 7.6 %; Neutrophils # 7.49 10^3/uL (1.8-7.7); Neutrophils % 83.2 %; Nucleated Red Blood Cells % 0 %; Platelet Count 109 10^3/cmm (130-400); Red Blood Count 3.78 10^6/uL (4.1-5.3); Red Cell Distribution Width 14.5 % (12.1-15.1)
[2020-10-16 05:55] LABS: Alanine Aminotransferase 24 U/L (0-41); Albumin Level 2.8 g/dL (3.5-5.2); Alkaline Phosphatase 65 IU/L (40-130); Anion Gap 12.3 (5-19); Aspartate Amino Transferase 30 U/L (0-40); Blood Urea Nitrogen 24 mg/dL (8-23); Calcium 8.1 mg/dL (8.5-10.5); Carbon Dioxide 23 mmol/L (22-29); Chloride 107 mmol/L (98-107); Globulin 2.5 g/dL (1.3-4.6); Glucose 148 mg/dL (65-115); Osmolality Calculated 293 mOsm/kg (285-295); Potassium 4.3 mmol/L (3.5-5.1); Sodium 138 mmol/L (136-145); Total Bilirubin 0.8 mg/dL (0.15-1.2); Total Protein 5.3 g/dL (6.6-8.7)
--- NOTE | 2020-10-16 09:59 | P.PN_ITS ---
Subjective Subjective: Interval history: The patient is less sedated and remains somewhat confused this morning. He continues to try to pull at his Jeffrey catheter. He did pull his nasogastric tube out last night but I instructed nursing to keep it out. Vitals/I&O/Wt Last Vital Signs Temp 97.7 F 10/16/20 08:15 Pulse 90 10/16/20 09:15 Resp 16 10/16/20 09:09 BP 106/68 10/16/20 08:15 Pulse Ox 93 10/16/20 09:09 10/15/20 10/16/20 10/16/20 22:59 06:59 14:59 Intake Total 1122.301 / 3075.013 871.520 / 3075.013 6.46 / 6.46 Output Total 430 / 980 225 / 980 Balance 692.301 / 2095.013 646.520 / 2095.013 6.46 / 6.46 Weight last 48 hrs Weight 160 lb Physical Exam Narrative: EXAM NARRATIVE: Bowel sounds are infrequent. The abdominal dressing was removed and his incisions look okay; he has pulled a couple felicity out by the umbilicus but if no further trauma to this area occurs I think it will heal fine. Urinary Catheter Management^: Jeffrey Latex: Cath Placed During This Visit: yes Reason for Continuing Indwelling Catheter: Accurate Measurement of Urinary Output in Critically Ill Patients Urinary Catheter Date of Insertion: 10/14/20 Urinary Catheter Time of Insertion: 19:10 Data : 10/16/20 04:43 10/16/20 04:43 Micro: Microbiology 10/15/20 05:25 Urine Culture - Preliminary Urine,Clean Catch 10/15/20 13:21 Blood Culture - Preliminary Blood SPECIMEN COLLECTED 10/15/20 13:27 Blood Culture - Preliminary Blood SPECIMEN COLLECTED A&P Assessment and plan (1) Incarcerated right inguinal hernia: Status post repair on 09/24/2020. Unfortunately the patient's cecum was incarcerated in the hernia and was necrotic. He underwent a cecal resection. Continue postoperative management. Appreciate hospitalist's assistance. Status: Acute Attestations Medical Necessity Statement*: The patient requires continued inpatient status for medical care following repair of an incarcerated hernia and bowel resection. Intravenous antibiotics continue. Coding Level of Care Code Acute Public Health Microbiologist for [facility] Diagnoses Incarcerated right inguinal hernia K40.30
[2020-10-16] MEDS: famotidine 20 mg/2 mL INJ IVP ×2 (10:09→22:57)
--- NOTE | 2020-10-16 10:21 | PC.NURSE ---
Pt very confused. words are not legible. Removes blanket, kicks feet.
--- NOTE | 2020-10-16 11:08 | PM.PN ---
Subjective Subjective: Interval history: Angelo is sedated on Precedex when I saw him. He pulled out his NG earlier this morning. Medications: Reviewed: Yes Vitals/I&O/Wt Last Vital Signs Temp 97.7 F 10/16/20 08:15 Pulse 82 10/16/20 10:15 Resp 23 H 10/16/20 10:15 BP 100/67 10/16/20 10:15 Pulse Ox 92 10/16/20 10:15 10/15/20 10/16/20 10/16/20 22:59 06:59 14:59 Intake Total 1122.301 / 2203.493 871.520 / 3075.013 16.277 / 16.277 Output Total 430 / 755 225 / 980 Balance 692.301 / 1448.493 646.520 / 2095.013 16.277 / 16.277 Weight last 48 hrs Weight 72.575 kg Physical Exam Narrative: EXAM NARRATIVE: General exam sedated Neck is supple no lymphadenopathy Cardiovascular regular rate and rhythm Lungs clear Abdomen is soft. A few bowel sounds are heard Extremities no cyanosis clubbing or edema Urinary Catheter Management^: Jeffrey Latex: Cath Placed During This Visit: yes Reason for Continuing Indwelling Catheter: Accurate Measurement of Urinary Output in Critically Ill Patients Urinary Catheter Date of Insertion: 10/14/20 Urinary Catheter Time of Insertion: 19:10 Data : 10/16/20 04:43 10/16/20 04:43 Micro: Microbiology 10/15/20 05:25 Urine Culture - Preliminary Urine,Clean Catch 10/15/20 13:21 Blood Culture - Preliminary Blood SPECIMEN COLLECTED 10/15/20 13:27 Blood Culture - Preliminary Blood SPECIMEN COLLECTED A&P Assessment and plan (1) Incarcerated right inguinal hernia: Postoperative day #2, status post hernia repair as well as end anastomosis secondary to necrotic cecum found on exploration. Status: Acute (2) Sepsis: Continue Zosyn Blood cultures negative to date Status: Acute (3) Gross hematuria: Urology consultation appreciated Continue Jeffrey currently Flexible sigmoidoscopy did not reveal any significant pathology. Secondary to significant hematuria holding on anticoagulation. Status: Acute (4) Alzheimer disease: Significant acute delirium/acute encephalopathy. Currently on Precedex. Wean Precedex down again today. Sitter. May brenda Steiner IM. Informed nursing to give me a call if this is needed. As soon as bowel function returns and Jeffrey can be removed Precedex can be discontinued altogether Status: Acute Additional A&P Information Gross hematuria. Status post flexible cystoscopy Dr. Cui did flexible cystoscopy which did not reveal any acute pathology nor leakage of dye intraperitoneal, no active hematuria. Hypothyroidism. Give levothyroxine IV for now. Add heparin for DVT prophylaxis if okay with surgery. Full code Attestations Medical Necessity Statement*: Needs continued hospital stay in the ICU status post bowel resection for necrotic bowel as well as hernia repair in this patient with acute hyperactive delirium requiring IV sedation Coding Level of Care Code Acute Associate Merchandise Planner for [facility] Fwd Diagnoses Incarcerated right inguinal hernia K40.30 Sepsis A41.9 Gross hematuria R31.0 Alzheimer disease G30.9; F02.80
[2020-10-16] MEDS: levalbuterol 0.63 mg/3 mL Neb INHALATION (11:38)
[2020-10-16] MEDS: OLANZapine 10 mg VIAL 5 MG IM (12:31)
[2020-10-16] MEDS: levothyroxine 100 mcg SDV 50 MCG IVP (12:31)
--- NOTE | 2020-10-16 12:35 | PC.NURSE ---
Pt very agitated, attempting to get out of bed and pull at his hooker. Dr. Gandhi notified, new orders received for Zyprexa.
[2020-10-16] MEDS: morphine 4 mg/mL SDV 1 mL IVP (13:09)
[2020-10-16] MEDS: heparin 5,000 unit/mL INJ 1 mL 5000 UNIT SUBCUT (16:15)
--- NOTE | 2020-10-16 18:17 | PC.NURSE ---
1450-Pt HR went to 150 and maintained, very agitated. Dr. Gandhi notified, instructed to turn Precedex back on.
[2020-10-16] MEDS: dexmedetomidine 400 MCG in sodium chloride 0.9% (100 ml) 100 ML 7.5 MCG IV (21:51)
[2020-10-17] VITALS (57 sets, daily range): BP systolic 88–157; BP diastolic 58–116; PULSE 58–127; RESP 12–40; TEMP 36.7–37; O2SAT 84–99
[2020-10-17] MEDS: D5-NS 0.45% + KCL 20 mEq 20 MEQ/1,000 ML BAG 100 MEQ IV ×3 (01:59→22:35)
[2020-10-17] MEDS: heparin 5,000 unit/mL INJ 1 mL 5000 UNIT SUBCUT ×2 (02:00→14:09)
--- NOTE | 2020-10-17 02:07 | PC.NURSE ---
ASSUMING CARE Patient resting in bed asleep with respirations. Patient difficult to arouse and not alert and oriented. Precedex running at 0.5 mcg/kg/hour, 1/2 NS with 20 mEq potassium at 100 mL/hour, and zosyn running. Abdominal incision open to air, restraints in place, and 1:1 sitter at bedside.
[2020-10-17] MEDS: piperacillin-tazobactam 3.375 GM in sodium chloride 0.9% (plus) 50 ML IV ×3 (05:09→22:35)
[2020-10-17] MEDS: morphine 4 mg/mL SDV 1 mL IVP ×4 (05:10→20:02)
--- NOTE | 2020-10-17 05:21 | PC.NURSE ---
BOWEL SOUNDS Patients bowel sounds auscultated this morning. Patient now has hypoactive bowel sounds. No flatus observed yet by nurse or 1:1 sitter.
--- NOTE | 2020-10-17 05:23 | PC.NURSE ---
URINE OUTPUT Patient has only had 225 mL or light allyson urine output this shift. Dr. Morton notified via voalte, message read at [phone].
[2020-10-17 06:10] LABS: Basophils # 0.1 10^3/uL (0.0-0.1); Basophils % 0.5 %; Eosinophils # 0.1 10^3/uL (0.0-0.8); Eosinophils % 0.6 %; Hematocrit 36.8 % (42.0-52.0); Hemoglobin 11.3 g/dL (11.7-16.6); Lymphocytes # 1.2 10^3/uL (0.8-4.8); Lymphocytes % 13.3 %; Mean Corpuscular HGB Conc 30.7 g/dL (30.0-36.0); Mean Corpuscular Hemoglobin 29.4 pg (28.0-34.0); Mean Corpuscular Volume 95.6 fL (80-94); Mean Platelet Volume 11.8 fL (7.4-10.4); Monocytes # 0.7 10^3/uL (0.2-0.9); Monocytes % 7.6 %; Neutrophils # 7.16 10^3/uL (1.8-7.7); Neutrophils % 77.1 %; Nucleated Red Blood Cells % 0 %; Platelet Count 120 10^3/cmm (130-400); Red Blood Count 3.85 10^6/uL (4.1-5.3); Red Cell Distribution Width 14.6 % (12.1-15.1); White Blood Count 9.3 10^3/uL (4.0-10.0)
[2020-10-17 07:28] LABS: Alanine Aminotransferase 37 U/L (0-41); Alkaline Phosphatase 77 IU/L (40-130); Anion Gap 13.3 (5-19); Aspartate Amino Transferase 44 U/L (0-40); Blood Urea Nitrogen 24 mg/dL (8-23); Calcium 8.3 mg/dL (8.5-10.5); Carbon Dioxide 22 mmol/L (22-29); Chloride 107 mmol/L (98-107); Globulin 2.7 g/dL (1.3-4.6); Glucose 127 mg/dL (65-115); Osmolality Calculated 292 mOsm/kg (285-295); Potassium 4.3 mmol/L (3.5-5.1); Sodium 138 mmol/L (136-145); Total Bilirubin 0.8 mg/dL (0.15-1.2); Total Protein 5.7 g/dL (6.6-8.7)
[2020-10-17] MEDS: levalbuterol 0.63 mg/3 mL Neb INHALATION ×4 (08:22→19:43)
--- NOTE | 2020-10-17 08:22 | PM.PN ---
Subjective Subjective: Interval history: The patient remains in the intensive care unit. He seems reasonably alert but his dementia seems to preclude him from answering questions appropriately. Vitals/I&O/Wt Last Vital Signs Temp 98.3 F 10/17/20 05:00 Pulse 92 10/17/20 07:00 Resp 23 H 10/17/20 05:10 BP 117/63 10/17/20 07:00 Pulse Ox 99 10/17/20 07:00 10/16/20 10/17/20 10/17/20 22:59 06:59 14:59 Intake Total 1071.692 / 2159.636 1021.667 / 2159.636 Output Total 300 / 525 225 / 525 Balance 771.692 / 1634.636 796.667 / 1634.636 Weight last 48 hrs Weight 177 lb 6.4 oz Physical Exam Narrative: EXAM NARRATIVE: Urine output reportedly dipped a little bit overnight. Still seems adequate. The abdominal incisions look good. He has very mild soft tissue swelling around the hernia site and right side of the genitalia, very typical for the operation that he had. He does have some bowel sounds. Urinary Catheter Management^: Jeffrey Latex: Cath Placed During This Visit: yes Reason for Continuing Indwelling Catheter: Accurate Measurement of Urinary Output in Critically Ill Patients Urinary Catheter Date of Insertion: 10/14/20 Urinary Catheter Time of Insertion: 19:10 Data : 10/17/20 04:28 10/17/20 06:51 Micro: Microbiology 10/15/20 13:21 Blood Culture - Preliminary Blood NEGATIVE TO DATE 10/15/20 13:27 Blood Culture - Preliminary Blood NEGATIVE TO DATE 10/15/20 05:25 Urine Culture - Preliminary Urine,Clean Catch A&P Assessment and plan (1) Incarcerated right inguinal hernia: Status post repair on 09/24/2020. Unfortunately the patient's cecum was incarcerated in the hernia and was necrotic. He underwent a cecal resection. Continue postoperative management. Appreciate hospitalist's assistance. Continue intravenous antibiotics. Leave Jeffrey catheter in place for accurate urine output monitoring. Physical therapy to assist with mobilization. Status: Acute Attestations Medical Necessity Statement*: Patient requires ongoing inpatient care for intravenous antibiotics and recovery following exploratory laparotomy. Coding Level of Care Code Acute Music Publisher for [facility] Diagnoses Incarcerated right inguinal hernia K40.30
[2020-10-17] MEDS: famotidine 20 mg/2 mL INJ IVP ×2 (09:11→22:36)
[2020-10-17] MEDS: levothyroxine 100 mcg SDV 50 MCG IVP (09:49)
[2020-10-17] MEDS: dexmedetomidine 400 MCG in sodium chloride 0.9% (100 ml) 100 ML 7.5 MCG IV (09:50)
--- NOTE | 2020-10-17 10:09 | PM.PN ---
Subjective Subjective: Interval history: He is awake, alert, confused. At first asks what I need, but does not answer any questions, then tries to get up from bed to show me something. He is somewhat restless, moving about blankets in bed, but does not appear in pain or discomfort. Vitals/I&O/Wt Last Vital Signs Temp 98.3 F 10/17/20 05:00 Pulse 100 10/17/20 08:22 Resp 20 H 10/17/20 08:22 BP 117/63 10/17/20 07:00 Pulse Ox 94 10/17/20 08:22 10/16/20 10/17/20 10/17/20 22:59 06:59 14:59 Intake Total 1071.692 / 2289.238 8369.667 / 2159.636 89.875 / 89.875 Output Total 300 / 300 225 / 525 Balance 771.692 / 837.969 796.667 / 1634.636 89.875 / 89.875 Weight last 48 hrs Weight 80.467 kg Physical Exam Const: COMMON NORMALS: no acute distress and alert; negative for patient oriented x3 ORIENTATION/CONSCIOUSNESS: Yes awake and Yes confused HENMT: COMMON NORMALS: oropharynx normal Neck/C-Spine: COMMON NORMALS: no JVD Resp: COMMON NORMALS: normal respiratory effort and clear to auscultation bilaterally AUSCULTATION: clear to auscultation bilaterally Cardio: COMMON NORMALS: no JVD, regular rhythm, S1 normal heart sound present, S2 normal heart sound present and No murmurs present (Cardio) RHYTHM: regular rhythm HEART SOUNDS: S1 normal heart sound present and S2 normal heart sound present GI: COMMON NORMALS: Soft to palpation PALPATION: Yes Soft to palpation Extremity: COMMON NORMALS: no joint enlargement and no pedal edema Neuro: COMMON NORMALS: moves all extremities; negative for patient oriented x3 SENSORIUM/ORIENTATION: Yes alert Skin: COMMON NORMALS: no rashes or lesions noted GENERAL SKIN EXAM: no rashes or lesions noted Urinary Catheter Management^: Jeffrey Latex: Cath Placed During This Visit: yes Reason for Continuing Indwelling Catheter: Accurate Measurement of Urinary Output in Critically Ill Patients Urinary Catheter Date of Insertion: 10/14/20 Urinary Catheter Time of Insertion: 19:10 Data : 10/17/20 04:28 10/17/20 06:51 Micro: Microbiology 10/15/20 13:21 Blood Culture - Preliminary Blood NEGATIVE TO DATE 10/15/20 13:27 Blood Culture - Preliminary Blood NEGATIVE TO DATE 10/15/20 05:25 Urine Culture - Preliminary Urine,Clean Catch A&P Assessment and plan (1) Incarcerated right inguinal hernia: Postoperative day #2, status post hernia repair as well as end anastomosis secondary to necrotic cecum found on exploration. Awaiting return of bowel function. Diet per surgery. N.p.o. with sips and chips currently. Status: Acute (2) Sepsis: Improving. Leukocytosis resolved. Did have low-grade temp 99.8 on 09/2030. Continue Zosyn for now. Blood cultures negative to date Status: Acute (3) Gross hematuria: Urology consultation appreciated. Status post flexible cystoscopy Dr. Cui did flexible cystoscopy which did not reveal any acute pathology nor leakage of dye intraperitoneal, no active hematuria. Continue Jeffrey currently. Removed per usual protocol after hematuria resolved and no longer needed for accurate I&O's. Flexible sigmoidoscopy did not reveal any significant pathology. Secondary to significant hematuria holding on anticoagulation. Status: Acute (4) Alzheimer disease: Significant acute delirium/acute encephalopathy. Continues buck of care. Continue Precedex for now as he appears to become restless, try to get out of bed, kicking off bedding, sedation to prevent injury to self, open wound, Jeffrey, or getting up and falling. Continue sitter. Yesterday required Zyprexa IM. As soon as bowel function returns and Jeffrey can be removed Precedex can be discontinued altogether Status: Acute Additional A&P Information Hypothyroidism. Give levothyroxine IV for now. Heparin for DVT prophylaxis Full code Attestations Medical Necessity Statement*: Continue admission for assessment management following incarcerated, necrotic right inguinal hernia, pending return of bowel function, improving sepsis. Coding Level of Care Code Acute Electrical Electronics Engineers for [facility] Fwd Diagnoses Incarcerated right inguinal hernia K40.30 Sepsis A41.9 Gross hematuria R31.0 Alzheimer disease G30.9; F02.80
--- NOTE | 2020-10-17 11:50 | PC.SOCIAL ---
Pg 2 IMM Explained to pt's Pg 2 IMM, via phone. No questions voiced. Provided pt a copy. Signed, dated, & timed a copy & placed in pt's chart.
--- NOTE | 2020-10-17 13:08 | PC.PT ---
Hold evaluation until 10/18. Could not obtain arousal state necessary for evaluation.
[2020-10-17] MEDS: dexmedetomidine 400 MCG in sodium chloride 0.9% (100 ml) 100 ML 9.4 MCG IV (23:01)
[2020-10-18] VITALS (56 sets, daily range): BP systolic 96–168; BP diastolic 51–135; PULSE 39–130; RESP 9–36; TEMP 36.8–37.1; O2SAT 74–98
[2020-10-18] MEDS: haloperidol inj 5 mg/mL INJ 1 mL IM (00:30)
[2020-10-18] MEDS: heparin 5,000 unit/mL INJ 1 mL 5000 UNIT SUBCUT ×2 (01:07→13:41)
[2020-10-18] MEDS: morphine 4 mg/mL SDV 1 mL IVP ×3 (01:07→13:41)
[2020-10-18] MEDS: piperacillin-tazobactam 3.375 GM in sodium chloride 0.9% (plus) 50 ML IV ×3 (06:09→21:14)
[2020-10-18] MEDS: levalbuterol 0.63 mg/3 mL Neb INHALATION ×2 (07:26→21:15)
--- NOTE | 2020-10-18 08:51 | P.PN_ITS ---
Subjective Subjective: Interval history: Confused. Intermittently restless. Vitals/I&O/Wt Last Vital Signs Temp 98.7 F 10/18/20 04:00 Pulse 71 10/18/20 07:31 Resp 16 10/18/20 07:26 BP 126/74 10/18/20 07:00 Pulse Ox 97 10/18/20 07:26 10/17/20 10/18/20 10/18/20 22:59 06:59 14:59 Intake Total 1125.403 / 2288.875 69.113 / 2357.988 38.19 / 38.19 Output Total 200 / 200 400 / 600 Balance 925.403 / 2088.875 -330.887 / 1757.988 38.19 / 38.19 Weight last 48 hrs Weight 80.467 kg Physical Exam Const: COMMON NORMALS: no acute distress ORIENTATION/CONSCIOUSNESS: Yes confused HENMT: COMMON NORMALS: oropharynx normal Neck/C-Spine: COMMON NORMALS: no JVD Resp: COMMON NORMALS: normal respiratory effort and clear to auscultation bilaterally AUSCULTATION: clear to auscultation bilaterally Cardio: COMMON NORMALS: no JVD, S1 normal heart sound present, S2 normal heart sound present and No murmurs present (Cardio) RHYTHM: abnormal rhythm irregularly irregular (PACs, pauses) HEART SOUNDS: S1 normal heart sound present and S2 normal heart sound present GI: COMMON NORMALS: Soft to palpation and non-tender AUSCULTATION: Yes Hypoactive bowel sounds present PALPATION: Yes Soft to palpation OTHER: Wound mid abdomen and right lower abdomen appears to be healing well. Small amount of bruising at the right lower quadrant wound. Extremity: COMMON NORMALS: no joint enlargement and no pedal edema Neuro: COMMON NORMALS: moves all extremities Skin: COMMON NORMALS: no rashes or lesions noted GENERAL SKIN EXAM: no rashes or lesions noted Urinary Catheter Management^: Hooker Latex: Cath Placed During This Visit: yes Reason for Continuing Indwelling Catheter: Accurate Measurement of Urinary Output in Critically Ill Patients Urinary Catheter Date of Insertion: 10/14/20 Urinary Catheter Time of Insertion: 19:10 Data : 10/17/20 04:28 10/17/20 06:51 Micro: Microbiology 10/15/20 05:25 Urine Culture - Final Urine,Clean Catch A&P Assessment and plan (1) Incarcerated right inguinal hernia: Sluggish bowel sounds present. No emesis noted. No bowel movement. Postoperative day #2, status post hernia repair as well as end anastomosis secon lorri to necrotic cecum found on exploration. Awaiting return of bowel function. Diet per surgery. N.p.o. with sips and chips currently. Status: Acute (2) Gross hematuria: Resolved. DC hooker and attempt to wean down on Precedex. Voiding trial. Monitor. Dr. Cui did flexible cystoscopy which did not reveal any acute pathology nor leakage of dye intraperitoneal, no active hematuria. Flexible sigmoidoscopy did not reveal any significant pathology. Secondary to significant hematuria holding on anticoagulation. Status: Acute (3) Alzheimer disease: Significant acute delirium/acute encephalopathy. Received Haldol around 12:30 in the morning. Confused. Episodes of restlessness. Trying to climb out of bed. Will DC Hooker catheter so that we can hopefully wean down sedation. Continue sitter. Status: Acute (4) Sepsis: Resolving. Leukocytosis resolved. Afebrile last 24 hours. Low-grade temp 99.8 on 09/2030. Continue Zosyn for now. Switch to oral antibiotic once able to tolerate oral diet. Blood cultures negative to date Status: Acute Additional A&P Information Hypothyroidism. levothyroxine IV Heparin for DVT prophylaxis Full code Attestations Medical Necessity Statement*: Continue admission for management following resection of necrotic bowel, with acute delirium/encephalopathy superimposed on advanced dementia, resolving sepsis. 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
[2020-10-18] MEDS: D5-NS 0.45% + KCL 20 mEq 20 MEQ/1,000 ML BAG 100 MEQ IV ×2 (09:19→20:33)
[2020-10-18] MEDS: famotidine 20 mg/2 mL INJ IVP ×2 (09:19→21:14)
--- NOTE | 2020-10-18 09:47 | PC.CHAP ---
Pastoral Care Encounter/Spiritual Assessment Type of Contact [] Declined food service ambassador visit [] Patient/Family/Request visit [] Outpatient visit [] Follow-up visit [] Physician referral [] Code/Alert [] Routine visit [] Staff referral [] Actively dying [] Patient sleeping [] Family support [] [] Out of room [] Palliative care [] [] Receiving care in room [] Pre-surgical visit [] Trauma [] Long length of stay [x] ICU visit [] Other: Relational/Emotional Strength [] Patient feels connected with others/family/visitors/staff [] Distress [] Loneliness/isolation [] Abandonment Spirituality of Patient [] Person of Ifrah [] Attends Sikh of their Ifrah [] Believes in Prayer [] Reads Bible or Rastafari materials [] There are Spiritual issues to be addressed Director Internal Audit Interventions [x] Prayer [] Active listening [] Non-anxious presence [] Spiritual/emotional support [] Crisis/trauma care [] Spiritual counseling [] Bereavement support [] Provided bereavement packet [] Provided Bible/devotional materials [] Provided toy/stuffed animal, coloring book to patient or family member [] Provided Communion [] Anointing/Igo [] Salvation [x] Completed spiritual assessment [] Other: Impact on Illness or Injury [] Angry [] Fearful [] Anxious [] Often cries [] Exhaustion [] Unable to work [] Unable to attend confucianist [] Unable to walk/stand [] Unable to read [] Unable to drive [] Unable to eat/drink [] Unable to sleep [] Unable to be with family [] Patient intubated [] Other: Summary Time spent with patient
[2020-10-18 10:51] LABS: Alanine Aminotransferase 68 U/L (0-41); Alkaline Phosphatase 150 IU/L (40-130); Anion Gap 16.5 (5-19); Aspartate Amino Transferase 68 U/L (0-40); Blood Urea Nitrogen 23 mg/dL (8-23); Calcium 8.3 mg/dL (8.5-10.5); Carbon Dioxide 17 mmol/L (22-29); Chloride 111 mmol/L (98-107); Globulin 2.7 g/dL (1.3-4.6); Glucose 128 mg/dL (65-115); Magnesium 2.1 mg/dL (1.7-2.3); Osmolality Calculated 295 mOsm/kg (285-295); Potassium 4.5 mmol/L (3.5-5.1); Sodium 140 mmol/L (136-145); Total Protein 5.7 g/dL (6.6-8.7)
--- NOTE | 2020-10-18 10:56 | PC.NURSE ---
Condition Pt remains confused this shift. Attempting to get out of bed and pull at catheter. Restraints remain in place. Alert and oriented x 0.
--- NOTE | 2020-10-18 11:01 | PM.PN ---
Subjective Subjective: Interval history: Patient remains in ICU. Has continued confusion/dementia requiring some restraints. Vitals/I&O/Wt Last Vital Signs Temp 98.7 F 10/18/20 04:00 Pulse 86 10/18/20 10:00 Resp 17 10/18/20 10:00 BP 162/82 10/18/20 10:00 Pulse Ox 96 10/18/20 10:00 10/17/20 10/18/20 10/18/20 22:59 06:59 14:59 Intake Total 1125.403 / 2357.988 69.113 / 2357.988 1038.19 / 1038.19 Output Total 200 / 600 400 / 600 Balance 925.403 / 1757.988 -330.887 / 4149.035 8336.19 / 1038.19 Weight last 48 hrs Weight 177 lb 6.4 oz Physical Exam Narrative: EXAM NARRATIVE: Incisions look good. The patient's bowel sounds seem to be improving. Urinary Catheter Management^: Jeffrey Latex: Cath Placed During This Visit: yes Reason for Continuing Indwelling Catheter: Accurate Measurement of Urinary Output in Critically Ill Patients Urinary Catheter Date of Insertion: 10/14/20 Urinary Catheter Time of Insertion: 19:10 Data : 10/17/20 04:28 10/18/20 10:12 Micro: Microbiology 10/15/20 05:25 Urine Culture - Final Urine,Clean Catch A&P Assessment and plan (1) Incarcerated right inguinal hernia: Status post repair on 09/24/2020. Unfortunately the patient's cecum was incarcerated in the hernia and was necrotic. He underwent a cecal resection. Continue postoperative management. Still awaiting obvious return of patient's bowel function. Appreciate hospitalist's assistance. Continue intravenous antibiotics. Leave Jeffrey catheter in place for accurate urine output monitoring. Physical therapy to assist with mobilization. Status: Acute Attestations Medical Necessity Statement*: Patient requires continued inpatient care following repair of incarcerated hernia with bowel necrosis. Coding Level of Care Code Acute Dope Maintenance Worker for [facility] Diagnoses Incarcerated right inguinal hernia K40.30
--- NOTE | 2020-10-18 13:07 | PC.PT ---
Spoke with nurse who said to hold at this time due to patient's confusion
--- NOTE | 2020-10-18 15:10 | PC.NURSE ---
Rachele D/C at 1510
--- NOTE | 2020-10-18 18:40 | PC.NURSE ---
Update Patient remains confused in bed. [address] in abdomen. Bowel sounds are hypoactive in all quadrants. 1:1 sitter stated pt has been passing flatulence.
[2020-10-18] MEDS: dexmedetomidine 400 MCG in sodium chloride 0.9% (100 ml) 100 ML 7.5 MCG IV (21:00)
[2020-10-18] MEDS: OLANZapine 10 mg VIAL IM (21:14)
[2020-10-19] VITALS (52 sets, daily range): BP systolic 104–186; BP diastolic 70–134; PULSE 75–141; RESP 16–42; TEMP 36.6–37.7; O2SAT 81–97
[2020-10-19] MEDS: heparin 5,000 unit/mL INJ 1 mL 5000 UNIT SUBCUT ×2 (02:07→14:50)
[2020-10-19] MEDS: morphine 4 mg/mL SDV 1 mL IVP ×3 (04:59→13:50)
[2020-10-19] MEDS: piperacillin-tazobactam 3.375 GM in sodium chloride 0.9% (plus) 50 ML IV (05:44)
[2020-10-19] MEDS: levalbuterol 0.63 mg/3 mL Neb INHALATION ×4 (05:59→15:06)
[2020-10-19 06:56] LABS: Basophils # 0.1 10^3/uL (0.0-0.1); Eosinophils # 0.2 10^3/uL (0.0-0.8); Eosinophils % 2.2 %; Hematocrit 36.9 % (42.0-52.0); Hemoglobin 11.9 g/dL (11.7-16.6); Lymphocytes # 1.5 10^3/uL (0.8-4.8); Lymphocytes % 15.5 %; Mean Corpuscular HGB Conc 32.2 g/dL (30.0-36.0); Mean Corpuscular Hemoglobin 29.5 pg (28.0-34.0); Mean Corpuscular Volume 91.3 fL (80-94); Mean Platelet Volume 11.2 fL (7.4-10.4); Monocytes # 1.3 10^3/uL (0.2-0.9); Monocytes % 13.4 %; Neutrophils # 6.12 10^3/uL (1.8-7.7); Nucleated Red Blood Cells % 0 %; Platelet Count 158 10^3/cmm (130-400); Red Blood Count 4.04 10^6/uL (4.1-5.3); Red Cell Distribution Width 14.2 % (12.1-15.1); White Blood Count 9.7 10^3/uL (4.0-10.0)
--- NOTE | 2020-10-19 07:58 | PM.PN ---
Subjective Subjective: Interval history: The patient remains somewhat restless. It seems that he almost tries to answer some questions this morning, however. Vitals/I&O/Wt Last Vital Signs Temp 97.8 F 10/19/20 00:00 Pulse 102 H 10/19/20 06:00 Resp 28 H 10/19/20 06:00 BP 123/105 10/19/20 06:00 Pulse Ox 84 L 10/19/20 05:00 10/18/20 10/19/20 10/19/20 22:59 06:59 14:59 Intake Total 1083.155 / 2280.591 109.246 / 2280.591 Output Total 400 / 800 400 / 800 Balance 683.155 / 1480.591 -290.754 / 1480.591 Weight last 48 hrs Weight 176 lb 12.8 oz Physical Exam Narrative: EXAM NARRATIVE: Incisions look good. Bowel sounds are present but remain slightly hypoactive. Urinary Catheter Management^: Jeffrey Latex: Cath Placed During This Visit: yes, but has since been removed by the nurse Reason for Continuing Indwelling Catheter: Other Urinary Catheter Date of Insertion: 10/14/20 Urinary Catheter Time of Insertion: 19:10 Date Urinary Catheter Removed: 10/18/20 Time Urinary Catheter Discontinued: 14:00 Data : 10/19/20 04:34 10/18/20 10:12 A&P Assessment and plan (1) Incarcerated right inguinal hernia: Status post repair on 09/24/2020. Unfortunately the patient's cecum was incarcerated in the hernia and was necrotic. He underwent a cecal resection. I would be in favor of discontinuing the patient's sedation and seeing what we are left with. I am going to get high school social science teacher involved for discharge disposition. Status: Acute Attestations Medical Necessity Statement*: Patient requires continued inpatient care following exploratory laparotomy with resection of necrotic cecum. Coding Level of Care Code Acute Sales Order Coordinator for [facility] Diagnoses Incarcerated right inguinal hernia K40.30
[2020-10-19] MEDS: D5-NS 0.45% + KCL 20 mEq 20 MEQ/1,000 ML BAG 100 MEQ IV ×2 (08:30→20:54)
[2020-10-19] MEDS: famotidine 20 mg/2 mL INJ IVP ×2 (09:40→22:34)
[2020-10-19 10:14] LABS: Alanine Aminotransferase 64 U/L (0-41); Albumin Level 3.2 g/dL (3.5-5.2); Alkaline Phosphatase 140 IU/L (40-130); Aspartate Amino Transferase 49 U/L (0-40); Blood Urea Nitrogen 21 mg/dL (8-23); Calcium 8.2 mg/dL (8.5-10.5); Carbon Dioxide 21 mmol/L (22-29); Chloride 107 mmol/L (98-107); Globulin 2.9 g/dL (1.3-4.6); Glucose 129 mg/dL (65-115); Osmolality Calculated 293 mOsm/kg (285-295); Sodium 139 mmol/L (136-145); Total Protein 6.1 g/dL (6.6-8.7); Triglycerides 124 mg/dL (0-150)
[2020-10-19] MEDS: levothyroxine 100 mcg SDV 50 MCG IVP (10:14)
--- NOTE | 2020-10-19 11:27 | ECG_ITS ---
[facility] Test Date: 2020-10-19 Pat Name: Angelo Fishman Department: Room: [facility] Gender: Male Records Management Assistant: : [id number] Requested By: Hernan Villasenor Order Number: [id number] Reading MD: Rojelio Robertson M.D. Measurements Intervals [place] Rate: 88 P: 87 MI: 158 QRS: 77 QRSD: 76 T: 62 QT: 359 QTc: 435 Interpretive Statements SINUS RHYTHM WITH FREQUENT ECTOPIC PREMATURE COMPLEXES LOW QRS VOLTAGE IN EXTREMITY LEADS [QRS DEFLECTION < 0.5 mV IN LIMB LEADS] No previous ECG available for comparison Electronically Signed On 10-19-2020 16:55:16 PATTERN FILER by Rojelio Robertson M.D. [email or web address]
--- NOTE | 2020-10-19 12:23 | DCPLANNER ---
IMM completed on 10/19/2020 @ 2081. Attempted to call pt contacts/family with no answer. Copy of rights given to pt.
[2020-10-19] MEDS: metoprolol tartrate 1 mg/1 mL SDV 5 mL 5 MG IV (18:10)
--- NOTE | 2020-10-19 19:56 | USR_ITS ---
PROCEDURE INFORMATION: Exam: US Abdomen, Limited; Right Upper Quadrant Exam date and time: 10/19/2020 7:30 AM Age: 85 years old Clinical indication: Abnormal findings; Abnormal lab test; Elevated liver enzymes; Additional info: Transaminitis, ap elevation TECHNIQUE: Imaging protocol: US abdomen. Real time ultrasound with image documentation. Limited exam focused on the right upper quadrant. COMPARISON: No relevant prior studies available. FINDINGS: Pleural space: Right pleural effusion. Liver: Longitudinal liver diameter 12.7 cm. Gallbladder: Likely biliary sludge formation. No definite cholelithiasis. Hydropic diameter of the gallbladder measures 5.1 cm. Common bile duct: Common bile duct diameter 0.68 cm may be within normal limits for patient age. Pancreas: Pancreas and abdominal aorta are reported nonvisualized. Right kidney: The right kidney measures 11.9 cm longitudinally. Right renal cortex diameter 1.5 cm. Inferior vena cava: Accentuated diameter of inferior vena cava. Intraperitoneal space: Mild abdominal ascites. Other findings: Limited examination secondary to bowel gas. US/US abdomen limited 15628 IMPRESSION: 1. Reported technically limited examination secondary to prominent bowel gas. 2. No visualized cholelithiasis with probable biliary sludge present. Hydropic transverse diameter of the gallbladder. 3. Small right pleural effusion. 4. Small abdominal ascites is nonspecific.
--- NOTE | 2020-10-19 20:45 | PM.PN ---
Subjective Subjective: Interval history: Confused, although appears to attempt to understand questions, but goes off on some unrelated tangents. Restless, kicking of sheets and covers. Draping legs over the edge of the bed, attempting to slide off. Does not follow any commands. Vitals/I&O/Wt Last Vital Signs Temp 99.8 F H 10/19/20 19:00 Pulse 85 10/19/20 19:00 Resp 29 H 10/19/20 19:00 BP 104/81 10/19/20 19:00 Pulse Ox 96 10/19/20 19:00 10/19/20 10/19/20 10/19/20 06:59 14:59 22:59 Intake Total 1109.246 / 3280.591 Output Total 400 / 800 Balance 709.246 / 2480.591 Weight last 48 hrs Weight 80.195 kg Physical Exam Const: COMMON NORMALS: no acute distress ORIENTATION/CONSCIOUSNESS: Yes confused HENMT: COMMON NORMALS: oropharynx normal Neck/C-Spine: COMMON NORMALS: no JVD Resp: COMMON NORMALS: normal respiratory effort and clear to auscultation bilaterally AUSCULTATION: clear to auscultation bilaterally Cardio: COMMON NORMALS: no JVD, S1 normal heart sound present, S2 normal heart sound present and No murmurs present (Cardio) RHYTHM: abnormal rhythm irregularly irregular (PACs, pauses) HEART SOUNDS: S1 normal heart sound present and S2 normal heart sound present GI: COMMON NORMALS: Soft to palpation and non-tender AUSCULTATION: Yes Hypoactive bowel sounds present PALPATION: Yes Soft to palpation OTHER: Wound mid abdomen and right lower abdomen appears to be healing well. Small amount of bruising at the right lower quadrant wound. Does not appear to grimace on palpation. Extremity: COMMON NORMALS: no joint enlargement and no pedal edema Neuro: COMMON NORMALS: moves all extremities Skin: COMMON NORMALS: no rashes or lesions noted GENERAL SKIN EXAM: no rashes or lesions noted Urinary Catheter Management^: Hooker Latex: Cath Placed During This Visit: yes, but has since been removed by the nurse Reason for Continuing Indwelling Catheter: Does Not Meet Criteria Urinary Catheter Date of Insertion: 10/14/20 Urinary Catheter Time of Insertion: 19:10 Date Urinary Catheter Removed: 10/18/20 Time Urinary Catheter Discontinued: 09:00 Data : 10/19/20 04:34 10/19/20 07:56 A&P Assessment and plan (1) Alzheimer disease: Persistent encephalopathy with delirium superimposed on chronic dementia. Unfortunately he continues to be restless. Today perhaps slightly better, however, continues to take off his covers, turned slightly of his abdomen and is not following commands. At this time has not been safe to attempt oral feeding. Unfortunately at high risk of aspiration. I am not entirely sure what his baseline is like. I am unable to reach his . He does have chronic dementia, I do suspect that there is component of delirium secondary to acute illness. He may recover from this is somewhat difficult to answer. Significant acute delirium/acute encephalopathy. He has Ohoker catheter has been discontinued. He is continue with one-to-one sitter, to keep close observation chronic sure he is safe, reorient if possible. Minimize use of restraints. Zyprexa if needed. Continue supportive care. Status: Acute (2) Incarcerated right inguinal hernia: Sluggish, but present bowel sounds. No emesis noted. No bowel movement. Status post hernia repair as well as end anastomosis secondary to necrotic cecum found on exploration. Awaiting return of bowel function. Diet per surgery. N.p.o. with sips and chips currently. Status: Acute (3) Sepsis: Resolving. Leukocytosis resolved. Afebrile last 24 hours. Low-grade temp 99.8 this evening. Will obtain chest x-ray. Continue Zosyn for now. Switch to oral antibiotic once able to tolerate oral diet. Blood cultures negative to date Status: Acute (4) Gross hematuria: Resolved. DC hooker and attempt to wean down on Precedex. Voiding. Monitor. Dr. Cui did flexible cystoscopy which did not reveal any acute pathology nor leakage of dye intraperitoneal, no active hematuria. Flexible sigmoidoscopy did not reveal any significant pathology. Secondary to significant hematuria holding on anticoagulation. Status: Acute Additional A&P Information Hypothyroidism. levothyroxine IV Heparin for DVT prophylaxis Full code Attestations Medical Necessity Statement*: Continue admission for assessment management of acute encephalopathy with delirium superimposed on chronic dementia following resection of necrotic segment of bowel, sepsis, without oral intake currently continue IV antibiotics and other medications. Disposition planning. Coding Level of Care Code Acute Sail Finisher Machine for [facility] Diagnoses Alzheimer disease G30.9; F02.80 Incarcerated right inguinal hernia K40.30 Sepsis A41.9 Gross hematuria R31.0
[2020-10-20] VITALS (52 sets, daily range): BP systolic 97–162; BP diastolic 57–102; PULSE 52–162; RESP 9–37; TEMP 36.6–37.4; O2SAT 85–100
[2020-10-20] MEDS: heparin 5,000 unit/mL INJ 1 mL 5000 UNIT SUBCUT ×2 (01:43→16:03)
--- NOTE | 2020-10-20 06:00 | XRR_ITS ---
PROCEDURE INFORMATION: Exam: XR Chest, 1 View Exam date and time: 10/20/2020 9:30 AM Age: 85 years old Clinical indication: Shortness of breath; Additional info: Hypoxia TECHNIQUE: Imaging protocol: XR of the chest Views: Frontal portable upright view of the chest. COMPARISON: No relevant prior studies available. FINDINGS: Lungs: Mild medial right basilar pulmonary subsegmental atelectasis. The pulmonary vasculature is normal. Pleural space: No pleural effusion. No pneumothorax. Heart/Mediastinum: Borderline cardiomegaly. Vasculature: 3Moderate aortic arch atherosclerotic calcification without ectasia. Bones/joints: Right lateral predominate vertebral body marginal osteophytes are noted at lower thoracic spinal levels. XR/XR chest 1V portable [id number] IMPRESSION: Mild medial right basilar pulmonary subsegmental atelectasis.
--- NOTE | 2020-10-20 06:23 | PM.PN ---
Subjective Subjective: Interval history: The patient remains in the ICU. He remains restless and unable to follow commands; he still requires a one-on-one sitter. He apparently just got to sleep few hours ago and so I tried to not wake him up this morning. Vitals/I&O/Wt Last Vital Signs Temp 98.4 F 10/20/20 06:00 Pulse 101 H 10/20/20 06:00 Resp 11 L 10/20/20 06:00 BP 103/70 10/20/20 05:30 Pulse Ox 96 10/20/20 05:30 10/19/20 10/19/20 10/20/20 14:59 22:59 06:59 Intake Total 1166.667 / 1211.421 44.754 / 1211.421 Balance 1166.667 / 1211.421 44.754 / 1211.421 Weight last 48 hrs Weight 175 lb 6.4 oz Weight 176 lb 12.8 oz Physical Exam Narrative: EXAM NARRATIVE: The patient has bowel sounds. Nursing reports that he is having bowel movements. Urinary Catheter Management^: Jeffrey Latex: Cath Placed During This Visit: yes, but has since been removed by the nurse Reason for Continuing Indwelling Catheter: Does Not Meet Criteria Urinary Catheter Date of Insertion: 10/14/20 Urinary Catheter Time of Insertion: 19:10 Date Urinary Catheter Removed: 10/18/20 Time Urinary Catheter Discontinued: 09:00 Data : 10/19/20 04:34 10/19/20 07:56 A&P Assessment and plan (1) Incarcerated right inguinal hernia: Status post repair on 09/24/2020. Unfortunately the patient's cecum was incarcerated in the hernia and was necrotic. He underwent a cecal resection. Bowel function has returned, but the patient is unable to eat by himself. Purely from a surgical perspective, the patient could be discharged at any time but obviously, there are huge concerns about the patient going home where I believe only he and his reside. In talking to his , he has rather significant dementia even at his baseline, but I am sure this is worse than what he had experienced preoperatively. In addition, he may eventually require nutritional support/tube feedings if his mental status does not improve soon. technical services representative has been involved in order to assist with discharge arrangements/placement as we continue to watch his progress over the next few days. Status: Acute Attestations Medical Necessity Statement*: Patient requires continued inpatient care following exploratory laparotomy with bowel resection. He remains restless and cannot eat by himself. Coding Level of Care Code Acute Instrumentation And Control Technician for [facility] Fwd Diagnoses Incarcerated right inguinal hernia K40.30
[2020-10-20 07:34] LABS: Hematocrit 35.4 % (42.0-52.0); Hemoglobin 11.1 g/dL (11.7-16.6); Mean Corpuscular HGB Conc 31.4 g/dL (30.0-36.0); Mean Corpuscular Hemoglobin 29.1 pg (28.0-34.0); Mean Corpuscular Volume 92.9 fL (80-94); Mean Platelet Volume 10.3 fL (7.4-10.4); Platelet Count 215 10^3/cmm (130-400); Red Blood Count 3.81 10^6/uL (4.1-5.3); Red Cell Distribution Width 14.4 % (12.1-15.1); White Blood Count 7.5 10^3/uL (4.0-10.0)
[2020-10-20 07:49] LABS: Alanine Aminotransferase 44 U/L (0-41); Albumin Level 2.8 g/dL (3.5-5.2); Alkaline Phosphatase 99 IU/L (40-130); Anion Gap 13.5 (5-19); Aspartate Amino Transferase 33 U/L (0-40); Blood Urea Nitrogen 19 mg/dL (8-23); Calcium 7.9 mg/dL (8.5-10.5); Carbon Dioxide 22 mmol/L (22-29); Chloride 110 mmol/L (98-107); Globulin 2.3 g/dL (1.3-4.6); Glucose 105 mg/dL (65-115); Osmolality Calculated 295 mOsm/kg (285-295); Potassium 4.5 mmol/L (3.5-5.1); Sodium 141 mmol/L (136-145); Total Bilirubin 0.8 mg/dL (0.15-1.2); Total Protein 5.1 g/dL (6.6-8.7)
[2020-10-20 08:23] LABS: Slide Review Slide Review Perform
[2020-10-20 08:26] LABS: Absolute Eosinophils 0.2 10^3/cmm (0.0-0.7); Absolute Segmented Neutrophil 4.8 10/cmm (1.6-7.1); Band Neutrophils Absolute 0.2 10^3/cmm (0.0-1.2); Basophils Absolute 0.1 10^3/cmm (0.0-0.2); Eosinophils 3 %; Lymphocytes 15 %; Monocytes Absolute 0.7 10^3/cmm (0.1-0.6); Segmented Neutrophils 64 %; Total Cells Counted 100 (0-100)
[2020-10-20 08:27] LABS: Anisocytosis 1+; Platelet Estimate Normal (Normal); Poikilocytosis Trace; Smudge Cells 1+
[2020-10-20] MEDS: levalbuterol 0.63 mg/3 mL Neb INHALATION ×4 (08:49→23:54)
[2020-10-20] MEDS: famotidine 20 mg/2 mL INJ IVP ×2 (09:28→23:30)
[2020-10-20] MEDS: dexmedetomidine 400 MCG in sodium chloride 0.9% (100 ml) 100 ML 9.4 MCG IV (09:28)
[2020-10-20] MEDS: levothyroxine 100 mcg SDV 50 MCG IVP (10:11)
--- NOTE | 2020-10-20 11:45 | PM.PN ---
Subjective Subjective: Interval history: continues to be encephalopathic, intermittently agitated Medications: Reviewed: Yes Vitals/I&O/Wt Last Vital Signs Temp 98.4 F 10/20/20 06:00 Pulse 66 10/20/20 11:00 Resp 23 H 10/20/20 11:00 BP 109/57 10/20/20 11:00 Pulse Ox 92 10/20/20 11:00 10/19/20 10/20/20 10/20/20 22:59 06:59 14:59 Intake Total 1166.667 / 1166.667 44.754 / 1211.421 Balance 1166.667 / 1166.667 44.754 / 1211.421 Weight last 48 hrs Weight 79.56 kg Weight 80.195 kg Physical Exam Narrative: EXAM NARRATIVE: GEN: somnolent, intermitetntly answers questions but unintelligible mostsly CVS: S1S2 N RS: CTA B/L Abd: Soft, nt/nd , bs+ ADMINISTRATIVE OFFICE ASSISTANT: no focal neuro deficits Urinary Catheter Management^: Hooker Latex: Cath Placed During This Visit: yes, but has since been removed by the nurse Reason for Continuing Indwelling Catheter: Does Not Meet Criteria Urinary Catheter Date of Insertion: 10/14/20 Urinary Catheter Time of Insertion: 19:10 Date Urinary Catheter Removed: 10/18/20 Time Urinary Catheter Discontinued: 09:00 Data : 10/20/20 07:08 10/20/20 07:08 A&P Assessment and plan (1) Alzheimer disease: Persistent encephalopathy with delirium superimposed on chronic dementia. Unfortunately he continues to be restless. Today perhaps slightly better, however, continues to take off his covers, turned slightly of his abdomen and is not following commands. At this time has not been safe to attempt oral feeding. Unfortunately at high risk of aspiration. I am not entirely sure what his baseline is like. I am unable to reach his . He does have chronic dementia, I do suspect that there is component of delirium secondary to acute illness. He may recover from this is somewhat difficult to answer. Significant acute delirium/acute encephalopathy. He has Hooker catheter has been discontinued. He is continue with one-to-one sitter, to keep close observation chronic sure he is safe, reorient if possible. Minimize use of restraints. Zyprexa if needed. Continue supportive care. Status: Acute (2) Incarcerated right inguinal hernia: Sluggish, but present bowel sounds. No emesis noted. No bowel movement. Status post hernia repair as well as end anastomosis secondary to necrotic cecum found on exploration. Awaiting return of bowel function. Diet per surgery. N.p.o. with sips and chips currently. Status: Acute (3) Sepsis: Resolving. Leukocytosis resolved. Afebrile last 24 hours. Low-grade temp 99.8 this evening. Will obtain chest x-ray. Continue Zosyn for now. Switch to oral antibiotic once able to tolerate oral diet. Blood cultures negative to date Status: Acute (4) Gross hematuria: Resolved. DC hooker and attempt to wean down on Precedex. Voiding. Monitor. Dr. Cui did flexible cystoscopy which did not reveal any acute pathology nor leakage of dye intraperitoneal, no active hematuria. Flexible sigmoidoscopy did not reveal any significant pathology. Secondary to significant hematuria holding on anticoagulation. Status: Acute Additional A&P Information Hypothyroidism. levothyroxine IV Heparin for DVT prophylaxis Full code Plan for today: add zyprexa at night time, prn 0.5mg haldol if needed, attempt to wean off precdex Attestations Medical Necessity Statement*: encephalopathy persisting, dispo planning Coding Level of Care Code Acute Nurse Auditor for [facility] Fwd Diagnoses Alzheimer disease G30.9; F02.80 Incarcerated right inguinal hernia K40.30 Sepsis A41.9 Gross hematuria R31.0
--- NOTE | 2020-10-20 16:17 | PC.NURSE ---
Bowel Movement Patient had moderate sized, soft BM
[2020-10-20] MEDS: OLANZapine 5 mg ODT PO (20:44)
[2020-10-20] MEDS: haloperidol inj 5 mg/mL INJ 1 mL IM (21:46)
[2020-10-21] VITALS (52 sets, daily range): BP systolic 106–170; BP diastolic 60–118; PULSE 53–157; RESP 8–46; TEMP 36.6–36.9; O2SAT 74–100
[2020-10-21] MEDS: heparin 5,000 unit/mL INJ 1 mL 5000 UNIT SUBCUT ×2 (02:20→14:05)
[2020-10-21] MEDS: dexmedetomidine 400 MCG in sodium chloride 0.9% (100 ml) 100 ML 7.5 MCG IV (05:23)
[2020-10-21] MEDS: levalbuterol 0.63 mg/3 mL Neb INHALATION ×3 (07:37→15:50)
--- NOTE | 2020-10-21 09:34 | PM.PN ---
Subjective Subjective: Interval history: Patient remains in ICU. He is on and off sedation. Apparently when they try to wean that he gets more combative. He will open his eyes to command but will not do other things for me this morning. Remains restless. Vitals/I&O/Wt Last Vital Signs Temp 97.8 F 10/21/20 05:30 Pulse 91 10/21/20 07:40 Resp 22 H 10/21/20 07:40 BP 143/84 10/21/20 07:00 Pulse Ox 95 10/21/20 07:40 10/20/20 10/21/20 10/21/20 22:59 06:59 14:59 Intake Total 104 / 104 Output Total 150 / 150 Balance 104 / -46 -150 / -46 Weight last 48 hrs Weight 171 lb 1.6 oz Weight 175 lb 6.4 oz Physical Exam Narrative: EXAM NARRATIVE: The incisions look good. Bowel sounds are present. Urinary Catheter Management^: Jeffrey Latex: Cath Placed During This Visit: yes, but has since been removed by the nurse Reason for Continuing Indwelling Catheter: Does Not Meet Criteria Urinary Catheter Date of Insertion: 10/14/20 Urinary Catheter Time of Insertion: 19:10 Date Urinary Catheter Removed: 10/18/20 Time Urinary Catheter Discontinued: 09:00 Data : 10/20/20 07:08 10/20/20 07:08 Micro: Microbiology 10/15/20 13:21 Blood Culture - Final Blood NO GROWTH AFTER 5 DAYS 10/15/20 13:27 Blood Culture - Final Blood NO GROWTH AFTER 5 DAYS A&P Assessment and plan (1) Incarcerated right inguinal hernia: Status post repair on 09/24/2020. Unfortunately the patient's cecum was incarcerated in the hernia and was necrotic. He underwent a cecal resection. Bowel function has returned, but the patient is unable to eat/and aspiration risk. Purely from a surgical perspective, the patient could be discharged at any time but obviously, there are huge concerns about the patient going home where I believe only he and his reside. In talking to his , he has rather significant dementia even at his baseline, but I am sure this is worse than what he had experienced preoperatively. At some point if he does not improve from a mental/encephalopathic standpoint, consideration will need to be given to placement of a feeding tube/placement at an outside facility, etc. Status: Acute Attestations Medical Necessity Statement*: Patient requires continued inpatient care status post laparotomy with bowel resection and ongoing encephalopathy. Coding Level of Care Code Acute Mental Health Aides Teacher for [facility] Fwd Diagnoses Incarcerated right inguinal hernia K40.30
--- NOTE | 2020-10-21 09:37 | PC.CHAP ---
Pastoral Care Encounter/Spiritual Assessment Type of Contact [] Declined agricultural service technician visit [] Patient/Family/Request visit [] Outpatient visit [] Follow-up visit [] Physician referral [] Code/Alert [] Routine visit [] Staff referral [] Actively dying [] Patient sleeping [] Family support [] [] Out of room [] Palliative care [] [] Receiving care in room [] Pre-surgical visit [] Trauma [] Long length of stay [x] ICU visit [] Other: Relational/Emotional Strength [] Patient feels connected with others/family/visitors/staff [] Distress [] Loneliness/isolation [] Abandonment Spirituality of Patient [] Person of Ifrah [] Attends [facility] of their [place] [] Believes in Prayer [] Reads Bible or Shinto materials [] There are Spiritual issues to be addressed Cyber Security Administrator Interventions [x] Prayer [] Active listening [] Non-anxious presence [] Spiritual/emotional support [] Crisis/trauma care [] Spiritual counseling [] Bereavement support [] Provided bereavement packet [] Provided Bible/devotional materials [] Provided toy/stuffed animal, coloring book to patient or family member [] Provided Communion [] Anointing/[place] [] Salvation [x] Completed spiritual assessment [] Other: Impact on Illness or Injury [] Angry [] Fearful [] Anxious [] Often cries [] Exhaustion [] Unable to work [] Unable to attend hoahaoism [] Unable to walk/stand [] Unable to read [] Unable to drive [] Unable to eat/drink [] Unable to sleep [] Unable to be with family [] Patient intubated [] Other: Summary Time spent with patient
[2020-10-21] MEDS: levothyroxine 100 mcg SDV 50 MCG IVP (10:15)
[2020-10-21] MEDS: famotidine 20 mg/2 mL INJ IVP ×2 (10:16→21:37)
[2020-10-21] MEDS: haloperidol inj 5 mg/mL INJ 1 mL IM ×2 (12:04→16:14)
--- NOTE | 2020-10-21 12:24 | PC.SOCIAL ---
IMM update Pg. 2 of IMM updated, and a copy left at bedside in ICU.
[2020-10-21] MEDS: metoprolol tartrate 1 mg/1 mL SDV 5 mL 5 MG IV ×2 (14:06→20:12)
--- NOTE | 2020-10-21 14:30 | PC.NURSE ---
metoprolol given d/t episodes of heart rate being in the 170s.
[2020-10-21 14:39] LABS: Hematocrit 41.4 % (42.0-52.0); Hemoglobin 13.3 g/dL (11.7-16.6); Mean Corpuscular HGB Conc 32.1 g/dL (30.0-36.0); Mean Corpuscular Hemoglobin 29.2 pg (28.0-34.0); Mean Platelet Volume 10.2 fL (7.4-10.4); Platelet Count 280 10^3/cmm (130-400); Red Blood Count 4.55 10^6/uL (4.1-5.3); Red Cell Distribution Width 14.4 % (12.1-15.1); White Blood Count 7.3 10^3/uL (4.0-10.0)
--- NOTE | 2020-10-21 14:42 | PC.NURSE ---
attempted to give pt. sip of water, he appeared to try to spit, then swallowed with coughing, then repeated swallowing.
--- NOTE | 2020-10-21 16:17 | P.PN_ITS ---
Subjective Subjective: Interval history: Precedex discontinued this morning in an attempt to minimize sedation and reassess mental status. Zyprexa ODT 5mg added overnight along with prn haldol. Since turning off precedex, patient continue sto remain confused and disoriented, babbling incomprehensible words. Calm at present however. Intermittent tachycardia up to 120-130bpm Medications: Reviewed: Yes Vitals/I&O/Wt Last Vital Signs Temp 97.8 F 10/21/20 05:30 Pulse 101 H 10/21/20 15:50 Resp 20 H 10/21/20 15:50 BP 170/94 10/21/20 13:00 Pulse Ox 94 10/21/20 15:50 10/21/20 10/21/20 10/21/20 06:59 14:59 22:59 Intake Total 47.875 / 47.875 Output Total 150 / 150 Balance -150 / -46 47.875 / 47.875 Weight last 48 hrs Weight 77.61 kg Weight 79.56 kg Physical Exam Narrative: EXAM NARRATIVE: GEN: Awake, disoriented, mutters few incomprehensible words CVS: S1S2N, rate irregular RS: CTA B/L Abd: Soft, nt/nd , bs+ COTTON DISPATCHER: moves all extremities in bed Urinary Catheter Management^: Jeffrey Latex: Cath Placed During This Visit: yes, but has since been removed by the nurse Reason for Continuing Indwelling Catheter: Does Not Meet Criteria Urinary Catheter Date of Insertion: 10/14/20 Urinary Catheter Time of Insertion: 19:10 Date Urinary Catheter Removed: 10/18/20 Time Urinary Catheter Discontinued: 09:00 Data : 10/21/20 14:05 10/21/20 18:01 Micro: Microbiology 10/15/20 13:21 Blood Culture - Final Blood NO GROWTH AFTER 5 DAYS 10/15/20 13:27 Blood Culture - Final Blood NO GROWTH AFTER 5 DAYS A&P Additional A&P Information 85M with PMH dementia, A fib, admitted on 10/14 with incarcerated ventral hernia s/p surgical repiar on 10/14. Active issues currently include A fib with RVR and persisting delirium/encephalopathy since surgery # Persisting delirium since 10/15 Patient has been on Precedex with attempts to wean complicated by increased agitation Taken off precedex this morning to reassess mentation off sedation Zyprexa 5mg added yesterday, haldol prn additionally for agitation Check CT head given persisting delirium/encephalopathy , though lower suspicion for CVA check TSH, FT4,FT3 ,b12 level sepsis w/up overall unrevealing, no leukocytosis, no fever currently, CXR without gross infiltrates to suggest pneumonia, negative blood and urine cx, Jeffrey removed, has received empiric abx course without any significant improvement Lowe suspciion for meneningitis given absence of fever, neck stiffness, no symptoms prior to admission. If fever recurs, will check COVID 19 rapid Ag Overall impression that of delirirum in a background of pre existing dementia. Had extensive discussion with daughter at bedside today. Patient has been having steadily declining cognition over the past year with frequent hallucinations. He was being considered for NH placement for this, however his 's reluctance had thus far precluded any attempts at placement in the past. # Swallow assessment attempted today- trial of pureed diet # incarcerated hernia s/p surgical repair- post op management per surgery # A fib with RVR : add metoprolol 12.5mg po BID Full code- discussed with daughter Attestations Medical Necessity Statement*: persisting delirium/encephalopathy, swallow evaluation ,dispo planning Coding Level of Care Code Acute Physician Practice Market Manager for [facility]
[2020-10-21 18:38] LABS: Alanine Aminotransferase 38 U/L (0-41); Albumin Level 3.2 g/dL (3.5-5.2); Alkaline Phosphatase 90 IU/L (40-130); Anion Gap 18.8 (5-19); Aspartate Amino Transferase 36 U/L (0-40); Blood Urea Nitrogen 22 mg/dL (8-23); Calcium 8.1 mg/dL (8.5-10.5); Carbon Dioxide 19 mmol/L (22-29); Chloride 108 mmol/L (98-107); Globulin 2.6 g/dL (1.3-4.6); Glucose 134 mg/dL (65-115); Osmolality Calculated 299 mOsm/kg (285-295); Potassium 3.8 mmol/L (3.5-5.1); Sodium 142 mmol/L (136-145); Total Bilirubin 0.9 mg/dL (0.15-1.2); Total Protein 5.8 g/dL (6.6-8.7)
[2020-10-21] MEDS: OLANZapine 5 mg ODT PO (21:38)
[2020-10-22] VITALS (40 sets, daily range): BP systolic 89–158; BP diastolic 46–101; PULSE 38–144; RESP 10–40; TEMP 36.9; O2SAT 85–98
--- NOTE | 2020-10-22 00:05 | PC.NURSE ---
Addendum entered by Roman Short RN 10/22/20 00:19: Documented on wrong patient Original Note: patient reports multiple times not wanting to keep HHFNC in, patient educated each time of importance that NC stays in to maintain oxygenation
--- NOTE | 2020-10-22 00:27 | PC.NURSE ---
1999 patient restless, trying to pull at lines, trying to push staff away, HR 150's, Precedex restarted per order, PRN Metoprolol administered 2011
[2020-10-22 00:42] LABS: Slide Review Slide Review Perform
[2020-10-22 00:47] LABS: Absolute Segmented Neutrophil 5.9 10/cmm (1.6-7.1); Band Neutrophils Absolute 0.1 10^3/cmm (0.0-1.2); Lymphocytes 5 %; Monocytes Absolute 0.5 10^3/cmm (0.1-0.6); Segmented Neutrophils 81 %; Total Cells Counted 100 (0-100)
[2020-10-22 00:49] LABS: Eosinophils 0 %; Platelet Estimate Normal (Normal)
[2020-10-22] MEDS: dexmedetomidine 400 MCG in sodium chloride 0.9% (100 ml) 100 ML 5.7 MCG IV (02:41)
[2020-10-22] MEDS: heparin 5,000 unit/mL INJ 1 mL 5000 UNIT SUBCUT ×2 (02:48→13:09)
[2020-10-22 06:24] LABS: Free T4 Free Thyroxine 0.89 ng/dL (0.82-1.77); Procalcitonin 2.03 ng/mL (0-0.5); T3 Free 1.1 PG/ML (2.0-4.4); Thyroid Stimulating Hormone 2.11 uIU/mL (0.27-4.20)
[2020-10-22 06:35] LABS: Alanine Aminotransferase 35 U/L (0-41); Albumin Level 2.8 g/dL (3.5-5.2); Alkaline Phosphatase 78 IU/L (40-130); Anion Gap 14.5 (5-19); Aspartate Amino Transferase 30 U/L (0-40); Blood Urea Nitrogen 21 mg/dL (8-23); Calcium 8.1 mg/dL (8.5-10.5); Carbon Dioxide 23 mmol/L (22-29); Chloride 109 mmol/L (98-107); Creatinine Clr Calc Pharmacy 72.5709; Globulin 2.5 g/dL (1.3-4.6); Glucose 129 mg/dL (65-115); Osmolality Calculated 301 mOsm/kg (285-295); Potassium 3.5 mmol/L (3.5-5.1); Sodium 143 mmol/L (136-145); Total Bilirubin 0.7 mg/dL (0.15-1.2); Total Protein 5.3 g/dL (6.6-8.7)
--- NOTE | 2020-10-22 06:55 | PC.NURSE ---
attempted to turn off Precedex, patient tried to get out of bed, kicking legs towards staff, Precedex restarted at previous rate
--- NOTE | 2020-10-22 07:00 | CT_ITS ---
WS: [id number] CT HEAD TECHNIQUE: Noncontrast CT of the head obtained from the skullbase to the vertex. CLINICAL INFORMATION: persisting delirium COMPARISON: None. DLP: 878.[address] scans at [facility] use at least one of these dose optimization techniques: automat ed exposure control; mA and/or kV adjustment per patient size (includes targeted exams where dose is matched to clinical indication); or iterative reconstruction. FINDINGS: No evidence of intracranial hemorrhage or mass effect. Ventricular system and basal cisterns are dong nt. Moderate small vessel changes with moderate parenchymal volume loss. Moderate to advanced atrophy anterior temporal lobes. Periventricular small vessel changes similar to previous. Intracranial vasc ular calcification. No extra-axial fluid collections. No evidence of mass or mass effect. Chronic opacification right frontal sinus and right frontal ethmoidal recess. Mucosal thickening in b oth mastoid tips. CT/CT head wo con* [id number] IMPRESSION: 1. No evidence of intracranial hemorrhage or mass effect. 2. Moderate small vessel changes. Moderate parenchymal volume loss. 3. Chronic opacification right frontal sinus.
--- NOTE | 2020-10-22 07:00 | ECG_ITS ---
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 Measurements Intervals [place] Rate: 83 P: MI: QRS: 66 QRSD: 76 T: 39 QT: 326 QTc: 384 Interpretive Statements ATRIAL FIBRILLATION LOW QRS VOLTAGE IN EXTREMITY LEADS [QRS DEFLECTION < 0.5 mV IN LIMB LEADS] ABNORMAL RHYTHM ECG Compared to ECG 10/19/2020 11:51:31 Sinus rhythm no longer present Electronically Signed On 10-23-2020 0:01:15 SENIOR LOGISTICS MANAGER by Corry Zuluaga M.D. [email or web address] county general hospitalRapid Diagnostekohiohealth dublin methodist hospital.Primedic/store/OM/[id number]
[2020-10-22 07:22] LABS: Vitamin B12 1851 pg/mL (232-1245)
--- NOTE | 2020-10-22 10:22 | ECG_ITS ---
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 Measurements Intervals [place] Rate: 67 P: 81 DC: 148 QRS: 60 QRSD: 79 T: 63 QT: 425 QTc: 452 Interpretive Statements SINUS RHYTHM WITH FREQUENT SUPRAVENTRICULAR PREMATURE COMPLEXES LOW QRS VOLTAGE IN EXTREMITY LEADS [QRS DEFLECTION < 0.5 mV IN LIMB LEADS] NONSPECIFIC T-WAVE ABNORMALITY ABNORMAL RHYTHM ECG Compared to ECG 10/22/2020 05:55:44 T-wave abnormality now present Atrial fibrillation no longer present Electronically Signed On 10-22-2020 23:47:46 REMOTE RECRUITER by Corry Zuluaga M.D. https://[employer].Albiorexregency meridianSanta Maria Biotherapeuticsbucyrus community hospital.[employer]/store/OM/[id number]
[2020-10-22] MEDS: levothyroxine 100 mcg SDV 50 MCG IVP (10:27)
[2020-10-22] MEDS: famotidine 20 mg/2 mL INJ IVP ×2 (10:27→21:12)
[2020-10-22 10:52] LABS: Magnesium 2.1 mg/dL (1.7-2.3)
[2020-10-22 11:25] LABS: Troponin(5th) Baseline 137 ng/L (0-15)
[2020-10-22] MEDS: levalbuterol 0.63 mg/3 mL Neb INHALATION ×3 (11:26→19:58)
--- NOTE | 2020-10-22 11:37 | P.PN_ITS ---
Subjective Subjective: Interval history: The patient is resting comfortably in bed this morning. He seems much less agitated than he has over the past several days when I have seen him, but the respiratory therapist told me he got very agitated during a recent breathing treatment this morning. He tries to answer my questions but I am not sure that his answers are very meaningful, as he is mum reynaldo, etc. Vitals/I&O/Wt Last Vital Signs Temp 97.8 F 10/21/20 05:30 Pulse 79 10/22/20 11:28 Resp 20 H 10/22/20 11:26 BP 95/62 10/22/20 11:00 Pulse Ox 94 10/22/20 11:26 10/21/20 10/22/20 10/22/20 22:59 06:59 14:59 Intake Total 5.7 / 101.625 48.050 / 101.625 17.543 / 17.543 Balance 5.7 / 101.625 48.050 / 101.625 17.543 / 17.543 Weight last 48 hrs Weight 170 lb Weight 171 lb 1.6 oz Physical Exam Narrative: EXAM NARRATIVE: Incisions look good. Urinary Catheter Management^: Jeffrey Latex: Cath Placed During This Visit: yes, but has since been removed by the nurse Reason for Continuing Indwelling Catheter: Does Not Meet Criteria Urinary Catheter Date of Insertion: 10/14/20 Urinary Catheter Time of Insertion: 19:10 Date Urinary Catheter Removed: 10/18/20 Time Urinary Catheter Discontinued: 09:00 Data : 10/21/20 14:05 10/22/20 04:58 A&P Assessment and plan (1) Incarcerated right inguinal hernia: Status post repair on 09/24/2020. Unfortunately the patient's cecum was incarcerated in the hernia and was necrotic. He underwent a cecal resection. Bowel function has returned, but the patient is unable to eat/an aspiration risk. A swallowing trial has been arranged but it does not appear its been done yet. Status: Acute Attestations Medical Necessity Statement*: The patient requires ongoing inpatient care following exploratory laparotomy with bowel resection and encephalopathy/delirium. Coding Level of Care Code Acute Tungsten Tender for [facility] Jaelyn Diagnoses Incarcerated right inguinal hernia K40.30
--- NOTE | 2020-10-22 12:22 | ECG_ITS ---
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 Measurements Intervals [place] Rate: 72 P: 66 ID: [id number] QRS: 45 QRSD: 78 T: 4 QT: 401 QTc: 440 Interpretive Statements SINUS RHYTHM WITH FREQUENT ECTOPIC PREMATURE COMPLEXES NONSPECIFIC T-WAVE ABNORMALITY ABNORMAL RHYTHM ECG Compared to ECG 10/22/2020 10:58:31 No significant changes Electronically Signed On 10-23-2020 0:02:16 NECKTIE CENTRALIZING MACHINE OPERATOR by Corry Zuluaga M.D. [email or web address]/store/[id number]
[2020-10-22] MEDS: OLANZapine 5 mg ODT PO (13:09)
[2020-10-22 13:20] LABS: Troponin 5 2HR 134.1 ng/L (0-15); Troponin 5 2HR Delta -2.9 ABS# (0-10)
--- NOTE | 2020-10-22 15:57 | P.PN_ITS ---
Subjective Subjective: Interval history: Patient has been placed back on Precedex overnight, discontinued this morning. Zyprexa 5 mg changed to morning, additionally mirtazapine has been added at evening time. metoprolol on hold this morning as patient developed bradycardia while on Precedex. On telemetry it appeared that patient had a bigeminy rhythm, 12-lead EKG was performed which showed sinus arrhythmia. Baseline troponin returned elevated at 137. Mental status appears to be mildly improved, patient is able to speak a few words, though out of context however the words appear to be legible. He is making some statements such as I do not have any clothes on , are you taking a picture when attempting to do echocardiogram, per daughter at bedside asked for his several times, attempted to self feed with a spoon earlier this afternoon. Restraints have been removed. Medications: Reviewed: Yes Vitals/I&O/Wt Last Vital Signs Temp 98.4 F 10/22/20 12:35 Pulse 83 10/22/20 15:44 Resp 20 H 10/22/20 15:43 BP 95/62 10/22/20 15:00 Pulse Ox 95 10/22/20 15:43 10/22/20 10/22/20 10/22/20 06:59 14:59 22:59 Intake Total 48.050 / 101.625 17.543 / 17.543 Balance 48.050 / 101.625 17.543 / 17.543 Weight last 48 hrs Weight 77.111 kg Weight 77.61 kg Physical Exam Narrative: EXAM NARRATIVE: GEN: Awake, disoriented, sepaking few words that make sense though not necesssarily in context CVS: S1S2 N RS: CTA B/L Abd: Soft, nt/nd , bs+ SENIOR WEB APPLICATIONS DEVELOPER: no focal neuro deficits Urinary Catheter Management^: Jeffrey Latex: Cath Placed During This Visit: yes, but has since been removed by the nurse Reason for Continuing Indwelling Catheter: Does Not Meet Criteria Urinary Catheter Date of Insertion: 10/14/20 Urinary Catheter Time of Insertion: 19:10 Date Urinary Catheter Removed: 10/18/20 Time Urinary Catheter Discontinued: 09:00 Data : 10/21/20 14:05 10/22/20 04:58 A&P Assessment and plan (1) Alzheimer disease: Status: Acute (2) Incarcerated right inguinal hernia: Status: Acute (3) Sepsis: Status: Acute (4) Gross hematuria: Status: Acute Additional A&P Information 85M with PMH dementia, A fib, admitted on 10/14 with incarcerated ventral hernia s/p surgical repiar on 10/14. Active issues currently include A fib with RVR vs sinus tachycardia vs arrhythmia and persisting delirium/encephalopathy since surgery # Persisting delirium since 10/15 Patient has been on Precedex with attempts to wean complicated by increased agitation Remained off precedex on 10/21 day but needed to be placed back overnight. This morning, while on 0.4 precedex, developed bradycardia with HR 40-50, appeared to be bigeminy on tele however 12 lead EKG with sinus arrhythmia. K at 3.5, supplement 40meq with goal of 4.0. Mag normal at 2.1, no hypoxia. Zyprexa 5mg added yesterday, haldol prn additionally for agitation . change timing of zyprexa to am and add mirtazipine at night time. Ct without CVA normal t4, TSH, low t3, unclear significance, transition iv levothyroxine to po sepsis w/up overall unrevealing, no leukocytosis, no fever currently, CXR without gross infiltrates to suggest pneumonia, negative blood and urine cx, Jeffrey removed, has received empiric abx course without any significant improv ement Lowe suspciion for meneningitis given absence of fever, neck stiffness, no symptoms prior to admission. If fever recurs, will check COVID 19 rapid Ag Overall impression that of delirirum in a background of pre existing dementia. Had extensive discussion with daughter at bedside. Patient has been having steadily declining cognition over the past year with frequent hallucinations. He was being considered for NH placement for this, however his 's reluctance had thus far precluded any attempts at placement in the past. # Swallow assessment appreciated- on dysphagia 1 diet, attempted to self feed per daughter # incarcerated hernia s/p surgical repair- post op management per surgery # A fib with RVR vs sinus tachycardia with arrhythmia: continue metoprolol 12.5mg po BID new EKg changes while on precedex, no acute ST-T wave changes, tropoin series with baseline 137, 2 hr at 134, negative delta, less likely AMI, more likely to be demand ischemia from fluctuating HR and recent stressors. Add ASA 81mg daily and atorvastatin 40mg po daily. continue 6 hr trend. Check echocardiogram. no past h/o CAD Will likely need stress test as an outpatient, unlikely to cooperate with janeen golden at this time. Full code- all updates discussed with daughter Attestations Medical Necessity Statement*: persisting delirium, addition of atypical antipssychotics with close monitoring, likely demand ischemia, elevated troponin Coding Level of Care Code Acute Contact Center Analyst for g Fwd Diagnoses Alzheimer disease G30.9; F02.80 Incarcerated right inguinal hernia K40.30 Sepsis A41.9 Gross hematuria R31.0
--- NOTE | 2020-10-22 15:59 | USCV_ITS ---
Angelo Fishman Age: 85 Gender: M : 1935 Exam Date: 10/22/2020 16:05 Ordering Phys: Tiera Morton MD Technologist: Sue Ortega [place] [facility] [place]: ELEV TROPONIN BP: 95 / 62 HR: 44 Rhythm: Sinus Technical Quality: Adequate MEASUREMENTS (Male / Female) Normal Values 2D ECHO LV Diastolic Diameter PLAX 4.3 cm 4.2 - 5.9 / 3.9 - 5.3 cm LV Systolic Diameter PLAX 3.7 cm LV Chamber Size 3.3 cm IVS Diastolic Thickness 0.8 cm 0.6 - 1.0 / 0.6 - 0.9 cm IVS Systolic Thickness 1.2 cm LVPW Diastolic Thickness 1.2 cm 0.6 - 1.0 / 0.6 - 0.9 cm LVPW Systolic Thickness 1.4 cm RV Chamber Size 3.5 cm LVOT Diameter 2.0 cm LV Ejection Fraction 2D Teich 30.6 % LV Ejection Fraction MOD 2C 39.3 % LV Ejection Fraction 2C AL 39.6 % LA Diameter 3.3 cm LA Width 3.6 cm LA Height 5.1 cm RA Width 3.6 cm RA Height 4.8 cm Aorta at Sinotubular Diameter 2.5 cm M-MODE LV Diastolic Diameter MM 6.7 cm 4.2 - 5.9 / 3.9 - 5.3 cm LV Systolic Diameter MM 5.5 cm LV Ejection Fraction MM Teich 36.7 % IVS Diastolic Thickness MM 0.9 cm 0.6 - 1.0 / 0.6 - 0.9 cm IVS Systolic Thickness MM 0.9 cm LVPW Diastolic Thickness MM 0.8 cm 0.6 - 1.0 / 0.6 - 0.9 cm LVPW Systolic Thickness MM 0.9 cm Aortic Annulus Diameter 3.4 cm LA Ao Ratio MM 0.9 MV E Point Septal Separation 1.3 cm DOPPLER AV Peak Velocity 161.0 cm/s LVOT Peak Velocity 88.0 cm/s AV Area Cont Eq vti 1.6 cm squared AV Area Cont Eq pk 1.7 cm squared MV Area PHT 3.7 cm squared Mitral E to A Ratio 1.9 MV E' Velocity 89.0 cm/s TR Peak Velocity 327.7 cm/s TR Peak Gradient 42.9 mmHg TV Peak E Velocity 60.0 cm/s Right Atrial Pressure 3.0 mmHg Pulmonary Artery Systolic Pressu 45.9 mmHg PV Peak Velocity 64.0 cm/s RV Acceleration Time 0.1 s RV Ejection Time 0.3 s RV AcT/ET 0.3 FINDINGS Left Ventricle Normal left ventricular cavity size. Moderately decreased left ventricular systolic function. Left ventricular ejection fraction is estimated at 30-35 %. Moderate global hypokinesis. Abnormal septal motion consistent with conduction abnormality. Right Ventricle Normal right ventricular size and systolic function. Right ventricular systolic pressure 52 mmHg. Right Atrium Normal right atrial size. Left Atrium Mildly increased left atrial size. Mitral Valve Mild mitral annular calcification. Thickened mitral valve. No mitral valve stenosis. Mild mitral valve regurgitation. Aortic Valve Aortic valve not well visualized. Thickened aortic valve. No aortic valve stenosis. No aortic valve regurgitation. Tricuspid Valve Structurally normal tricuspid valve. Trace tricuspid valve regurgitation. Pulmonic Valve Pulmonic valve not well visualized. Pericardium No pericardial effusion. Aorta Aorta not well visualized. Probably normal-sized aortic root. CONCLUSIONS 1. Normal left ventricular cavity size. Moderately decreased left ventricular systolic function. Left ventricular ejection fraction is estimated at 30-35 %. Moderate global hypokinesis. 2. Normal right ventricular size and systolic function. 3. Moderate pulmonary hypertension with pulmonary artery pressure estimated at 52 mmHg. 4. Mild mitral valve regurgitation. 5. No prior similar studies to compare. Taylor Arcos MD (Electronically Signed) Final Date: 22 October 2020 18:16 S
[2020-10-22] MEDS: haloperidol inj 5 mg/mL INJ 1 mL IM (16:17)
--- NOTE | 2020-10-22 16:22 | ECG_ITS ---
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 Measurements Intervals [place] Rate: 79 P: ME: QRS: 56 QRSD: 77 T: 0 QT: 316 QTc: 363 Interpretive Statements ATRIAL FIBRILLATION with frequent PVCs NONSPECIFIC T-WAVE ABNORMALITY ABNORMAL RHYTHM ECG Compared to ECG 10/22/2020 13:21:29 Sinus rhythm no longer present T-wave abnormality still present Electronically Signed On 10-23-2020 0:09:[address] by Corry Zuluaga M.D. [email or web address].CoNarrativemagnolia regional health centerTvoopthe university of toledo medical center.Red[employer] Data/store/OM/[id number]
[2020-10-22 17:40] LABS: Troponin 5 6HR 124.5 ng/L (0-15); Troponin 5 6HR Delta -12.5 ng/L (0-12)
[2020-10-22] MEDS: lidocaine 1% 5 ML in potassium chloride premix 100 ML 25 ML IV (17:43)
[2020-10-22] MEDS: morphine 4 mg/mL SDV 1 mL IVP ×2 (19:32→23:40)
--- NOTE | 2020-10-22 19:33 | PC.NURSE ---
Reported pain, unable to rate pain but is restless
--- NOTE | 2020-10-22 19:43 | PC.NURSE ---
PRN morphine administered for pain, does not follow commands, attempts to communicate but words are not understood, supine 30 degrees, 1 on 1 sitter at bedside
[2020-10-22] MEDS: metoprolol tartrate 25 mg Tablet 12.5 MG PO (20:43)
[2020-10-22] MEDS: mirtazapine 15 mg Tablet 7.5 MG PO (20:43)
[2020-10-23] VITALS (34 sets, daily range): BP systolic 106–160; BP diastolic 76–118; PULSE 83–160; RESP 11–42; TEMP 37–38.9; O2SAT 84–99
[2020-10-23] MEDS: heparin 5,000 unit/mL INJ 1 mL 5000 UNIT SUBCUT ×2 (01:32→15:01)
[2020-10-23] MEDS: morphine 4 mg/mL SDV 1 mL IVP (03:50)
[2020-10-23 06:34] LABS: Alanine Aminotransferase 31 U/L (0-41); Albumin Level 2.8 g/dL (3.5-5.2); Alkaline Phosphatase 74 IU/L (40-130); Anion Gap 19.1 (5-19); Aspartate Amino Transferase 40 U/L (0-40); Blood Urea Nitrogen 22 mg/dL (8-23); Calcium 8.1 mg/dL (8.5-10.5); Carbon Dioxide 17 mmol/L (22-29); Chloride 112 mmol/L (98-107); Creatinine Clr Calc Pharmacy 72.5709; Globulin 2.8 g/dL (1.3-4.6); Glucose 123 mg/dL (65-115); Osmolality Calculated 303 mOsm/kg (285-295); Potassium 4.1 mmol/L (3.5-5.1); Sodium 144 mmol/L (136-145); Total Bilirubin 0.6 mg/dL (0.15-1.2); Total Protein 5.6 g/dL (6.6-8.7)
--- NOTE | 2020-10-23 07:49 | PM.PN ---
Subjective Subjective: Interval history: The patient is easily arousable again this morning. He tries to answer questions but does not have a lot of meaningful responses. Vitals/I&O/Wt Last Vital Signs Temp 99.9 F H 10/23/20 05:45 Pulse 88 10/23/20 06:00 Resp 14 10/23/20 06:00 BP 139/81 10/23/20 06:00 Pulse Ox 95 10/23/20 06:00 10/22/20 10/23/20 10/23/20 22:59 06:59 14:59 Output Total 300 / 300 Balance -300 / -282.457 Weight last 48 hrs Weight 171 lb Weight 170 lb Physical Exam Narrative: EXAM NARRATIVE: The patient had a temperature of 99.9 degrees this morning, but has otherwise been afebrile for the past 4 days. The incisions look good. Urinary Catheter Management^: Jeffrey Latex: Cath Placed During This Visit: yes, but has since been removed by the nurse Reason for Continuing Indwelling Catheter: Does Not Meet Criteria Urinary Catheter Date of Insertion: 10/14/20 Urinary Catheter Time of Insertion: 19:10 Date Urinary Catheter Removed: 10/18/20 Time Urinary Catheter Discontinued: 09:00 Data : 10/21/20 14:05 10/23/20 05:37 A&P Assessment and plan (1) Incarcerated right inguinal hernia: Status post repair on 09/24/2020. Unfortunately the patient's cecum was incarcerated in the hernia and was necrotic. He underwent a cecal resection. Bowel function has returned. Status: Acute (2) Delirium: Management per hospitalist team. Status: Acute Attestations Medical Necessity Statement*: The patient requires ongoing inpatient care following bowel resection for encephalopathy/delirium. Coding Level of Care Code Acute Dcs Engineer for karen Fwrebeka Diagnoses Incarcerated right inguinal hernia K40.30 Delirium R41.0
[2020-10-23] MEDS: levalbuterol 0.63 mg/3 mL Neb INHALATION ×2 (08:03→13:18)
[2020-10-23] MEDS: famotidine 20 mg/2 mL INJ IVP ×2 (09:25→22:40)
[2020-10-23] MEDS: metoprolol tartrate 25 mg Tablet 12.5 MG PO (09:48)
[2020-10-23] MEDS: OLANZapine 5 mg ODT PO (09:49)
[2020-10-23] MEDS: metoprolol tartrate 1 mg/1 mL SDV 5 mL 5 MG IV ×2 (10:29→16:02)
--- NOTE | 2020-10-23 10:40 | PC.NURSE ---
patient resting in bed. heart rate in 120-130 sustained. PRN iv metoprolol given per order. vital signs stable. sitter at bedside as patient is trying to climb out of bed. patient continues to be redirected.
--- NOTE | 2020-10-23 13:41 | PC.SOCIAL ---
IMM update Pg. 2 of IMM updated and reviewed with patient's daughter at bedside. Copy provided.
--- NOTE | 2020-10-23 13:53 | CTR_ITS ---
PROCEDURE INFORMATION: Exam: CT Angiography Chest With Contrast Exam date and time: 10/23/2020 2:45 PM Age: 85 years old Clinical indication: Abnormal findings; Abnormal diagnostic tests; Other: Elevated troponin; Additional info: New hypoxia, prolonged immobilization, elevated troponin TECHNIQUE: Imaging protocol: Computed tomographic angiography of the chest with intravenous contrast. 3D rendering (Not supervised by radiologist): MIP and/or 3D reconstructed images were created by the technologist. Radiation optimization: All CT scans at this facility use at least one of these dose optimization techniques: automated exposure control; mA and/or kV adjustment per patient size (includes targeted exams where dose is matched to clinical indication); or iterative reconstruction. Contrast material: VISI 320; Contrast volume: 80 ml; Contrast route: INTRAVENOUS (IV); COMPARISON: CR (CHEST, ) 10/20/2020 9:29 AM RADIATION DOSE METRICS: Total DLP (mGy-cm): 582.19 FINDINGS: Pulmonary arteries: No definite filling defects identified in the pulmonary arteries. Some artery branches are obscured by significant breathing motion artifact. Aorta: Unremarkable. No aortic aneurysm. No aortic dissection. Lungs: Diffuse dense patchy ground-glass opacities with an upper lobe predominance. Dependent atelectasis in the lower lobes. Pleural space: Medium sized bilateral pleural effusions. Heart: Coronary artery calcifications. Heart size is normal. Lymph nodes: Unremarkable. No enlarged lymph nodes. Bones/joints: Unremarkable. No acute fracture. Soft tissues: Unremarkable. CT/CT angio chest PE protcl [id number] IMPRESSION: 1. No evidence for pulmonary embolus. Evaluation is limited by significant breathing motion artifact. 2. Multilobar ground-glass opacities could represent pneumonia or pulmonary edema. 3. Bilateral pleural effusions. Radiation Dose CTDIVOL = (mGy): DLP = 582.19 (mGy-cm)
[2020-10-23 14:42] LABS: NT Pro B Type Natriuretic Pept 10799 pg/mL (0-450)
[2020-10-23] MEDS: FUROsemide 10 mg/mL SDV 2mL 20 MG IVP ×3 (15:01→20:32)
[2020-10-23 15:13] LABS: SARS Covid-2 Antigen Positive (Negative)
--- NOTE | 2020-10-23 16:08 | PM.PN ---
Subjective Subjective: Interval history: Patient noted to have intermittent desaturation down to 88 to 89% on nasal cannula, currently on 3 L/min. In addition when examined this afternoon patient has in the interim developed bilateral coarse crackles and tachypnea. Overnight had a temperature of 99.9 Fahrenheit. Mental status remains unchanged compared to yesterday. He has not needed any Precedex. Did get mirtazapine last night and Zyprexa this morning. Medications: Reviewed: Yes Vitals/I&O/Wt Last Vital Signs Temp 98.6 F 10/23/20 12:41 Pulse 87 10/23/20 14:00 Resp 11 L 10/23/20 14:00 BP 112/84 10/23/20 14:00 Pulse Ox 88 L 10/23/20 13:18 10/23/20 10/23/20 10/23/20 06:59 14:59 22:59 Intake Total 100 / 100 Balance 100 / 100 Weight last 48 hrs Weight 77.564 kg Weight 77.111 kg Physical Exam Narrative: EXAM NARRATIVE: GEN: Asleep when first seen, does open eyes to command, per daughter who is at bedside, earlier he was more awake and asked for a few family members by the correct names. Recognized the daughter at bedside. CVS: S1S2 N RS: Bilateral coarse crackles to auscultation all areas Abd: Soft, nt/nd , bs+ [employer]: Moves all extremities in bed Urinary Catheter Management^: Jeffrey Latex: Cath Placed During This Visit: yes, but has since been removed by the nurse Reason for Continuing Indwelling Catheter: Does Not Meet Criteria Urinary Catheter Date of Insertion: 10/14/20 Urinary Catheter Time of Insertion: 19:10 Date Urinary Catheter Removed: 10/18/20 Time Urinary Catheter Discontinued: 09:00 Data : 10/21/20 14:05 10/23/20 05:37 A&P Assessment and plan (1) Alzheimer disease: Status: Acute (2) Incarcerated right inguinal hernia: Status: Acute (3) Sepsis: Resolving. Leukocytosis resolved. Afebrile last 24 hours. Low-grade temp 99.8 this evening. Will obtain chest x-ray. Continue Zosyn for now. Switch to oral antibiotic once able to tolerate oral diet. Blood cultures negative to date Status: Acute (4) Gross hematuria: Status: Acute Additional A&P Information 85M with PMH dementia, Covid 19 infection diagnosed Sep 09, admitted on 10/14 with incarcerated ventral hernia s/p surgical repiar on 10/14. Active issues currently include A fib with RVR vs sinus tachycardia vs arrhythmia and persisting delirium/encephalopathy since surgery # Persisting delirium since 10/15 Patient has been on Precedex with attempts to wean complicated by increased agitation Remained off precedex on 10/21 and 10/22, currently on Zyprexa 5mg and mirtazipine at night time. CT head without CVA /bleed normal t4, TSH sepsis w/up overall unrevealing thus far, however now with tmax 99.9F along with new hypoxia today and labored breathing. Suspect interval development of aspiration pneumonia given that he received trial of dysphagia diet over past 2 days vs systolic CHF given echocardiogram with EF of only 30% with pulmonary edema. Differential includes PE given tachycardia, hypoxia and prolonged immobilization, though he has been on DVT ppx. Check CTA chest to evalute for PE check BNP , trial of lasix 20mg iv x 1 as lasix naive Blood cx with am labs start empiric Piperacillin-Tazobactam check rapid Covid 19 ag Overall impression that of delirirum in a background of pre existing dementia. Had extensive discussion with daughter at bedside. Patient has been having steadily declining cognition over the past year with frequent hallucinations. # acute systolic congestive heart failure Echocardiogram yesterday with EF 30% and elevated filling pressures Uncertain chronicity of heart failure, but reportedly no history of CAD in the past Troponin elevation without significant delta, may be related to a subacute coronary event vs demand ischemia/type 2 VA from sepsis, recent surgery. Currently not stable to undergo stress test. Started on ASA and statin. Currently also on metoprolol, hold off on adding ACEi for now # Swallow assessment appreciated- on dysphagia 1 diet, attempted to self feed per daughter # incarcerated hernia s/p surgical repair- post op management per surgery # A fib with RVR vs sinus tachycardia with arrhythmia: continue metoprolol 12.5mg po BID Full code- all updates discussed with daughter including that interval discovery of poor systolic function, persisting delirium likely aspiration and respiratory insufficiency overall indicate a poor prognosis. He is being made NPO again today due to possible aspiration, discussed with both daughters and that next steps from here would involve consideration for PEG tube, however they state this is against patient's last known wishes and have declined the same. They will be discussing GOC as a family later today. 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
[2020-10-23] MEDS: piperacillin-tazobactam 3.375 GM in sodium chloride 0.9% (plus) 50 ML IV (16:56)
[2020-10-23] MEDS: iodixanol 320 mg/mL 100mL Btl IV (17:50)
--- NOTE | 2020-10-23 19:00 | PM.EVENT ---
Event Note Event Note: Called by RN that patient developed worsening respiratory distress at ~6:30 pm this evening. Spo2 now 76% on 3lpm CTA chest showed no PE, however B/L infiltrates which may represent pneumonitis vs pulmonary edema BNP elevated >10,000 Urine output ~350cc after 20mg iv lasix Tmax now 102F Covid Ag positive, per further history, daughter reports patient was diagnosed with Covid 19 infection with mild synptoms on Aug 16- patient does not need isolation measures at this time as no longer considered infective. Plan: Additional Lasix 40mg iv x 1 , Noriega placement Duoneb nebulization Transition to heated hi flow, if continues to worsen, may need bipap prn morphine added for air hunger goals of care again discussed with both daughters and patient's , in keeping with patient's last known wishes, code status has now been changed to DNR/DNI. Use of morphine as needed to alleviate air hunger. Okay for heated hi flow and Bipap if needed, prefer hi flow given recent abdominal surgery. No PEG or NGT.
[2020-10-23] MEDS: acetaminophen 650 mg Supp PR (19:02)
[2020-10-23] MEDS: morphine 4 mg/mL SDV 1 mL 2 MG IVP (20:28)
--- NOTE | 2020-10-23 23:28 | XR_ITS ---
WS: [id number] Exam: XR chest 1V portable [id number] Date/Time of Exam: 10/23/2020 11:28 PM Reason For Exam: follow up CHF Comparison 10/20/2020. Extensive bilateral pulmonary infiltrates have developed since the prior study. Heart size is normal. The lungs are fully inflated. No pleural effusions. The mediastinum and bony thorax are unremarkable . XR/XR chest 1V portable [id number] IMPRESSION: 1. Extensive bilateral consolidating pulmonary infiltrates have developed since the last exam.
[2020-10-24] VITALS (32 sets, daily range): BP systolic 105–128; BP diastolic 59–107; PULSE 61–128; RESP 13–30; TEMP 37.4–38.2; O2SAT 91–98
[2020-10-24] MEDS: piperacillin-tazobactam 3.375 GM in sodium chloride 0.9% (plus) 50 ML IV ×2 (00:30→08:41)
[2020-10-24] MEDS: morphine 4 mg/mL SDV 1 mL 2 MG IVP ×4 (00:46→13:57)
[2020-10-24] MEDS: heparin 5,000 unit/mL INJ 1 mL 5000 UNIT SUBCUT ×2 (02:09→14:56)
[2020-10-24 05:35] LABS: Alanine Aminotransferase 29 U/L (0-41); Albumin Level 2.9 g/dL (3.5-5.2); Alkaline Phosphatase 85 IU/L (40-130); Aspartate Amino Transferase 45 U/L (0-40); Blood Urea Nitrogen 24 mg/dL (8-23); Calcium 7.9 mg/dL (8.5-10.5); Carbon Dioxide 23 mmol/L (22-29); Chloride 110 mmol/L (98-107); Globulin 2.4 g/dL (1.3-4.6); Glucose 97 mg/dL (65-115); Osmolality Calculated 312 mOsm/kg (285-295); Sodium 149 mmol/L (136-145); Total Bilirubin 0.7 mg/dL (0.15-1.2); Total Protein 5.3 g/dL (6.6-8.7)
[2020-10-24 05:56] LABS: Hematocrit 45.9 % (42.0-52.0); Hemoglobin 14.6 g/dL (11.7-16.6); Mean Corpuscular HGB Conc 31.8 g/dL (30.0-36.0); Mean Corpuscular Hemoglobin 28.9 pg (28.0-34.0); Mean Corpuscular Volume 90.7 fL (80-94); Mean Platelet Volume 9.9 fL (7.4-10.4); Platelet Count 263 10^3/cmm (130-400); Red Blood Count 5.06 10^6/uL (4.1-5.3); Red Cell Distribution Width 14.8 % (12.1-15.1); White Blood Count 29.7 10^3/uL (4.0-10.0)
[2020-10-24 05:56] LABS: Anion Gap 19.7 (5-19); Potassium 3.7 mmol/L (3.5-5.1)
--- NOTE | 2020-10-24 06:09 | P.PN_ITS ---
Subjective Subjective: Interval history: The patient showed evidence of increasing hypoxia yesterday. There is some concern that he may have aspirated during his swallowing trial. He also appeared to be somewhat fluid overloaded and so he was diuresed. Dr. Morton had discussions with the family members yesterday. They indicated that the patient has stated previous wishes that he does not ever want to have a feeding tube. He was made a DNR yesterday by the family. Further discussions a re apparently going to be held today. Vitals/I&O/Wt Last Vital Signs Temp 100.8 F H 10/24/20 02:00 Pulse 81 10/24/20 04:31 Resp 24 H 10/24/20 04:31 BP 114/60 10/24/20 03:00 Pulse Ox 95 10/24/20 04:31 10/23/20 10/23/20 10/24/20 14:59 22:59 06:59 Intake Total 100 / 150 50 / 150 Output Total 1300 / 1300 Balance 100 / -1150 -1250 / -1150 Weight last 48 hrs Weight 171 lb Physical Exam Narrative: EXAM NARRATIVE: The patient is on high flow oxygen but has an oxygen saturation of 96%. Blood pressure is slightly elevated. The incisions look good. Urinary Catheter Management^: Jeffrey Latex: Cath Placed During This Visit: yes, but has since been removed by the nurse Reason for Continuing Indwelling Catheter: Does Not Meet Criteria Urinary Catheter Date of Insertion: 10/14/20 Urinary Catheter Time of Insertion: 19:10 Date Urinary Catheter Removed: 10/18/20 Time Urinary Catheter Discontinued: 09:00 Jeffrey: Cath Placed During This Visit: yes Reason for Continuing Indwelling Catheter: Accurate Measurement of Urinary Output in Critically Ill Patients Urinary Catheter Date of Insertion: 10/23/20 Urinary Catheter Time of Insertion: 16:30 Data : 10/21/20 14:05 10/24/20 04:30 A&P Assessment and plan (1) Incarcerated right inguinal hernia: Status post repair on 09/24/2020. Unfortunately the patient's cecum was incarcerated in the hernia and was necrotic. He underwent a cecal resection. Bowel function has returned. Status: Acute (2) Delirium: Continuing management per hospitalist team. Status: Acute Attestations Medical Necessity Statement*: Patient requires continued inpatient care for delirium, hypoxia. Coding Level of Care Code Acute Anodizer for [facility] Diagnoses Incarcerated right inguinal hernia K40.30 Delirium R41.0
[2020-10-24 07:23] LABS: Slide Review Slide Review Perform
[2020-10-24 07:25] LABS: Absolute Neutrophil 29.7 10^3/cmm (1.4-6.5); Absolute Segmented Neutrophil 7.7 10/cmm (1.6-7.1); Eosinophils 0 %; Lymphocytes 0 %; Platelet Estimate Normal (Normal); Segmented Neutrophils 26 %; Total Cells Counted 100 (0-100)
[2020-10-24] MEDS: famotidine 20 mg/2 mL INJ IVP (09:34)
[2020-10-24] MEDS: metoprolol tartrate 1 mg/1 mL SDV 5 mL 5 MG IV ×2 (10:41→14:57)
[2020-10-24] MEDS: FUROsemide 10 mg/mL SDV 10mL 60 MG IVP (10:54)
[2020-10-24] MEDS: levalbuterol 0.63 mg/3 mL Neb INHALATION ×2 (11:22→15:33)
--- NOTE | 2020-10-24 15:41 | PC.NURSE ---
call to physician nurse noted cardiac rhythm change. patient going in and out of a.fib, bi juminy, bradycardia. patient blood pressure soft but WNL. family at bedside. informed of findings.
--- NOTE | 2020-10-24 17:27 | PM.PN ---
Subjective Subjective: Interval history: WBC trended up to 29, predominantly band forms, resp status continues to be tenous, on heated hi flow 100% Fi02 at 45lpm, labored breathing+. Peripheries appearing cool and clammy. Medications: Reviewed: Yes Vitals/I&O/Wt Last Vital Signs Temp 99.5 F 10/24/20 13:00 Pulse 61 10/24/20 15:39 Resp 19 H 10/24/20 15:36 BP 126/81 10/24/20 15:00 Pulse Ox 93 10/24/20 15:36 10/24/20 10/24/20 10/24/20 06:59 14:59 22:59 Intake Total 50 / 50 Output Total 700 / 2000 Balance -700 / -1850 50 / 50 Weight last 48 hrs Weight 74.843 kg Weight 77.564 kg Physical Exam Narrative: EXAM NARRATIVE: GEN: Somnolent, does not wake to calling name, intermittently agitated CVS: S1S2 N RS: B/L coarse crackles to auscultation all areas Abd: Soft, nt/nd , bs+, incision site without obvious cellulitis Urinary Catheter Management^: Jeffrey Latex: Cath Placed During This Visit: yes, but has since been removed by the nurse Reason for Continuing Indwelling Catheter: Does Not Meet Criteria Urinary Catheter Date of Insertion: 10/14/20 Urinary Catheter Time of Insertion: 19:10 Date Urinary Catheter Removed: 10/18/20 Time Urinary Catheter Discontinued: 09:00 Jeffrey: Cath Placed During This Visit: yes Reason for Continuing Indwelling Catheter: Accurate Measurement of Urinary Output in Critically Ill Patients Urinary Catheter Date of Insertion: 10/23/20 Urinary Catheter Time of Insertion: 16:30 Data : 10/24/20 04:15 10/24/20 04:30 Micro: Microbiology 10/24/20 04:20 Blood Culture - Preliminary Blood SPECIMEN COLLECTED 10/24/20 04:15 Blood Culture - Preliminary Blood SPECIMEN COLLECTED A&P Assessment and plan (1) Alzheimer disease: Status: Acute (2) Incarcerated right inguinal hernia: Status: Acute (3) Sepsis: Status: Acute (4) Gross hematuria: Status: Acute Additional A&P Information 85M with PMH dementia, Covid 19 infection diagnosed Sep 09, admitted on 10/14 with incarcerated ventral hernia s/p surgical repiar on 10/14. Active issues currently include A fib with RVR vs sinus tachycardia vs arrhythmia and persisting delirium/encephalopathy since surgery # Persisting delirium since 10/15 Patient has been on Precedex with attempts to wean complicated by increased agitation Remained off precedex on 10/21 and 10/22, currently on Zyprexa 5mg and mirtazipine at night time, however without any meaningful improvement in mentation CT head without CVA /bleed normal t4, TSH sepsis w/up now with leukocytosis with bandemia, fever 102F, tending to hypotension with SBP 80s. Suspect interval development of aspiration pneumonia given that he received trial of dysphagia diet over past 2 days vs systolic CHF given echocardiogram with EF of only 30% with pulmonary edema. Differential includes ARDS from sepsis given B/L extensive infiltrates CTA chest negative for PE Overall impression that of delirirum in a background of pre existing dementia. Had extensive discussion with daughters at bedside. Patient has been having steadily declining cognition over the past year with frequent hallucinations. # acute systolic congestive heart failure Echocardiogram yesterday with EF 30% and elevated filling pressures Uncertain chronicity of heart failure, but reportedly no history of CAD in the past Troponin elevation without significant delta, may be related to a subacute coronary event vs demand ischemia/type 2 LA from sepsis, recent surgery. Currently not stable to undergo stress test. # Swallow assessment appreciated- started dysphagia diet however likely now with aspiration as well, family declined PEG per patint's last known wishes # incarcerated hernia s/p surgical repair- post op management per surgery # A fib with RVR vs sinus tachycardia with arrhythmia All updates discussed with daughters. Patient is exhibiting signs of sepsis with multiorgan failure including Type 2MI, interval discovery of poor systolic function of only 30%, persisting delirium/encephalopathy, respiratory insufficiency related to pulmonary edema and possibly ARDS. He is relatively hypotensive this evening with SBP dropping to 80s. Overall given the above in a background of advanced dementia, patient has a poor overall prognosis. Family declines further investigations such as CT abdomen as discovery of abdominal source is unlikely to change overall outcome as they do not want him getting any further surgeries. Declined LP due to lower suspicion for meningitis and results overall unlikely to add any changes in management or meaningful quality of life. PEG is declined. In this situation it is unlikely that further testing or escalation of care will add any menaingful quality of life. Overall daughters and have decided to proceed with only comfort care measures at this time in keeping with patient's last known wishes. 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
[2020-10-24] MEDS: LORazepam 2 mg/mL INJ 1 mL IVP ×5 (17:47→23:14)
[2020-10-24] MEDS: morphine 4 mg/mL SDV 1 mL IVP ×8 (18:17→23:14)
[2020-10-25] MEDS: morphine 4 mg/mL SDV 1 mL IVP ×3 (00:07→03:27)
[2020-10-25] MEDS: LORazepam 2 mg/mL INJ 1 mL IVP ×3 (00:07→03:27)
--- NOTE | 2020-10-25 04:18 | PM.EVENT ---
Event Note Event Note: Time of 4 AM, note to be done by Dr. Morton
--- NOTE | 2020-10-25 04:27 | PC.NURSE ---
Addendum entered by Love Haider RN 10/25/20 05:33: Verified no heartbeat. No respirations. Original Note: 0400 Patient respirations ceased. Auscultated breath sounds for one minute and unable to assess any. Second nurse, Love Haider RN, verified. Patient was PEA on monitor. Family at bedside. Time of called at 0400. [facility] notified of . 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 Ref# [id number]
--- NOTE | 2020-10-26 07:39 | PM.DDS ---
Discharge Providers DDS Date of Admission: 10/14/20 22:11 Date Summary Completed: 10/26/20 Attending Provider at Admission: Frankie Newberry MD Time of : 04:00 Attending Provider at Discharge: Frankie Newberry MD Primary Care Provider: DO CITLALY Gallardo Diagnoses Hospital Diagnoses (1) Alzheimer disease: (2) Incarcerated right inguinal hernia: (3) Sepsis: (4) Gross hematuria: Reason for Visit Reason for Visit: Hernia Complications/Sent from Summary Date and Time of Date of : 10/25/20 Time of : 04:00 Summary Summary: This is an 85-year-old white male with a known history of a right inguinal hernia who presented to the emergency department with an incarceration of the hernia. He was taken to the operating room and unfortunately at time of exploration was found to have a necrotic cecum incarcerated within the hernia. He underwent laparotomy and cecectomy in addition to repair of his hernia. Postoperatively he was taken to the intensive care unit and the hospitalist service was consulted for medical management. He was kept on broad-spectrum antibiotics. The patient had an ongoing history of dementia and exhibited significant delirium postoperatively, requiring sedation and soft restraints at times. Despite these measures, he eventually was able to pull out his nasogastric tube and it was left out. His bowel function returned. His Jeffrey catheter was eventually removed, but the patient remained confused and delirious. A CAT scan of his head showed no acute changes. He never could give meaningful answers to any questions. His white blood cell count eventually defervesced and his antibiotics were discontinued around the fifth postoperative day. He appeared unable to eat and consideration was given to a feeding tube, but the family insisted that this would go against the patient's wishes. Eventually a swallowing study was done. There was some thought that he may have aspirated at the time of his swallowing study. In the subsequent days his white blood cell count spiked back up and he became more and more hypoxic. Chest x-ray and clinical appearance was consistent with ARDS. Antibiotics were restarted but the patient continued to deteriorate. The family was not interested in pursuing aggressive medical care; they made the patient a DNR and wanted to move forward with comfort care only. The patient eventually around 4 AM on 10/25/2020. 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
== END 2020-10-25 04:00 | disposition expired | DRG 853 ==
LOC: ER 14:00 → OPS 14:09 → ICU 22:11
PROVIDERS: Internal Medicine; Student in an Organized Health Care Education/Training Program; Urology; Admitting Provider Surgery; Emergency Provider Emergency Medicine; PCP Family Medicine; Visit Provider Surgery
PROC: 0YQ50ZZ Repair Right Inguinal Region, Open Approach (ICD-10-PCS; principal; 2020-10-14 16:00)
PROC: 0TJB8ZZ Inspection of Bladder, Via Natural or Artificial Opening Endoscopic (ICD-10-PCS; CPT 52000; 2020-10-14 16:00)
PROC: 0YQ50ZZ Repair Right Inguinal Region, Open Approach (ICD-10-PCS; CPT 49000; 2020-10-14 16:00)
DX: A41.9 Sepsis, unspecified organism (principal); K55.041 Focal (segmental) acute infarction of large intestine; I50.21 Acute systolic (congestive) heart failure; I21.A1 Myocardial infarction type 2; J69.0 Pneumonitis due to inhalation of food and vomit; K40.30 Unilateral inguinal hernia, with obstruction, without gangrene, not specified as recurrent; F05 Delirium due to known physiological condition; G30.1 Alzheimer's disease with late onset; F02.80 Dementia in other diseases classified elsewhere, unspecified severity, without behavioral disturbance, psychotic disturbance, mood disturbance, and anxiety; F32.9 Major depressive disorder, single episode, unspecified; I11.0 Hypertensive heart disease with heart failure; E03.9 Hypothyroidism, unspecified; R31.0 Gross hematuria; I48.91 Unspecified atrial fibrillation; Z86.19 Personal history of other infectious and parasitic diseases; Z66 Do not resuscitate; Z51.5 Encounter for palliative care; I46.9 Cardiac arrest, cause unspecified
CPT/HCPCS: 12345; 36415; 51702; 70450; 71045; 71275; 76705; 80048; 80053; 81001; 82607; 83605; 83735; 83880; 84145; 84439; 84443; 84478; 84481; 84484; 85007; 85025; 85610; 85730; 87040; 87086; 87426; 87493; 88302; 88309; 92526; 92610; 93005; 93306; 94640; 96372; 97162; 97530; 99283; J0330; J0690; J1100; J1630; J1644; J1940; J2060; J2270; J2405; J2543; J2704; J3010; J3480; J3490; J7030; J7040; J7614; P9047; Q9967